=== PATIENT | female | born 1995 | race Caucasian/White ===

== ENCOUNTER → 2016-09-15 | Outpatient (CLI) | payer OTHER ==
--- NOTE | 2016-09-15 09:28 | US ---
EXAMINATION TYPE: US abdomen complete DATE OF EXAM: 09/15/2016 COMPARISON: US 2012 CLINICAL HISTORY: R10.11 RUQ PAIN for approximately 3 weeks. Pain is noted after food and ingestion o f medication; taking medication for Anxiety, ADHD, Tourette's Syndrome, and ACNE EXAM MEASUREMENTS: Liver Length: 14.5 cm Gallbladder Wall: 0.2 cm CBD: 0.1 cm Spleen: 10.1 cm Right Kidney: 11.1 x 3.7 x 2.9 cm Left Kidney: 10.6 x 4.9 x 4.0 cm Pancreas: wnl Liver: wnl Gallbladder: wnl Evidence for sonographic Maya's sign: Yes, per patient CBD: wnl Spleen: wnl Right Kidney: wnl Left Kidney: wnl Upper IVC: wnl Abd Aorta: wnl The liver is homogenous. The intrahepatic portion of the IVC and proximal abdominal aorta are within normal limits. There is no evidence of cholelithiasis. Common bile duct is unremarkable. The visu alized portions of the pancreas are homogenous. The spleen is unremarkable. Kidneys are symmetric a nd free of hydronephrosis. No renal lesions are seen. IMPRESSION: No significant abnormality appreciated.
== END | disposition home or self-care (01) ==
LOC: RADUSWWP 07:42
PROVIDERS: ATTEND Internal Medicine
DX: R10.11 Right upper quadrant pain (principal)
CPT/HCPCS: 76700

== ENCOUNTER → 2016-10-06 | Outpatient (CLI) | payer OTHER ==
--- NOTE | 2016-10-06 15:39 | NM ---
Nuclear medicine hepatobiliary scan. HISTORY: Pain. DOSAGE: The patient received 8 ounces of ensure plus and 5.1 mCi of Technetium 99m Choletec. FINDINGS: There is normal hepatic extraction. The gallbladder is seen by 40 minutes. There is bilia ry to bowel clearance by 30 minutes. Ejection fraction is 78%. IMPRESSION: 1. Normal hepatobiliary exam
== END | disposition home or self-care (01) ==
LOC: RADNMMAIN 12:58
PROVIDERS: ATTEND Surgery
DX: R10.84 Generalized abdominal pain (principal)
CPT/HCPCS: 78226; A9537

== ENCOUNTER → 2017-05-12 | Outpatient (CLI) | payer BC ==
[2017-05-12 11:48] LABS: T4, Free (Free Thyroxine) 1.01 ng/dL (0.78-2.19)
== END | disposition home or self-care (01) ==
LOC: LABWHC1 10:33
PROVIDERS: ATTEND Otolaryngology
DX: E03.9 Hypothyroidism, unspecified (principal); F45.8 Other somatoform disorders
CPT/HCPCS: 36415; 84439; 84443; 86376

== ENCOUNTER → 2017-05-28 | Outpatient (CLI) | payer BC ==
--- NOTE | 2017-05-28 08:37 | FL ---
ESOPHOGRAM. HISTORY: Dysphagia Esophagram was performed per the air contrast technique. The patient swallowed barium and effervesce nt crystals without difficulty or delay. Esophageal peristalsis and motility appear to be within normal limits. There is no evidence for filling defect, mass or diverticulum. No hiatal hernia seen. Subsequently single contrast cervical esophagram was performed which fails demonstrate evidence for a spiration penetration or mass. IMPRESSION: Unremarkable study.
== END | disposition home or self-care (01) ==
LOC: RADFLMAIN 07:40
PROVIDERS: ATTEND Otolaryngology
DX: R13.10 Dysphagia, unspecified (principal)
CPT/HCPCS: 74220

== ENCOUNTER 2017-08-14 23:44 | Emergency (ER) | payer BC ==
[2017-08-14] MEDS ORDERED: ONDANSETRON ODT 4 MG TAB PO STA (23:59)
--- NOTE | 2017-08-15 00:01 | ED ---
Head Injury HPI - General Stated complaint: Head Injury Time Seen by Provider: 08/14/17 23:52 Source: patient, RN notes reviewed Mode of arrival: ambulatory Limitations: no limitations - History of Present Illness Initial comments: This is a 21-year-old female presents emergency from chief complaint of head injury. Patient states that she went to shut her window but slipped on her bed fell into the windowsill striking her face. She states that she felt dazed initially and is had a severe headache that the day. Patient also complains of pain on her left thigh. Denies any blurred vision, double vision. Patient states that she's felt nauseated but no vomiting. Patient states she did try taking some ibuprofen today though she is not having relief of her symptoms. She denies any extremity injuries. She denies any focal weakness or confusion. - Related Data Allergies/Adverse reactions: Allergies Allergy/AdvReac Type Severity Reaction Status Date / Time No Known Allergies Allergy Verified 08/15/17 00:03 Review of Systems ROS Statement: Those systems with pertinent positive or pertinent negative responses have been documented in the HPI. ROS Other: All systems not noted in ROS Statement are negative. General Exam General appearance: alert, in no apparent distress Head exam: Present: atraumatic, normocephalic, normal inspection Eye exam: Present: normal appearance, PERRL, EOMI, periorbital swelling (Mild left), periorbital tenderness (Gece-pj-kgnbbgii left superior to lateral aspect) . Absent: scleral icterus, conjunctival injection ENT exam: Present: normal exam, normal oropharynx, mucous membranes moist, TM's normal bilaterally Neck exam: Present: normal inspection, full ROM. Absent: tenderness, meningismus, lymphadenopathy Respiratory exam: Present: normal lung sounds bilaterally. Absent: respiratory distress, wheezes, rales, rhonchi, stridor Cardiovascular Exam: Present: regular rate, normal rhythm, normal heart sounds. Absent: systolic murmur, diastolic murmur, rubs, gallop, clicks Extremities exam: Present: normal inspection, full ROM, normal capillary refill. Absent: tenderness, pedal edema, joint swelling, calf tenderness Back exam: Absent: tenderness Neurological exam: Present: alert, oriented X3, CN II-XII intact, reflexes normal, other (Finger to nose intact bilaterally). Absent: motor sensory deficit Skin exam: Present: warm, dry, intact, normal color. Absent: rash Course Vital Signs 08/14/17 23:59 Temperature 98.1 F Pulse Rate 68 Respiratory 18 Rate Blood Pressure 120/86 O2 Sat by Pulse 99 Oximetry Medical Decision Making - Medical Decision Making 21-year-old female presented for facial head injury. Patient had CT which was unremarkable. Patient is contusion over left periorbital region, patient does have a headache after head injury consistent with concussion. Patient will be discharged at this time advised to apply ice to her face, take Motrin as directed and return for any worsening symptoms. She is advised to partake in any physical activity until cleared by PCP. Disposition Clinical Impression: Concussion with loss of consciousness, Facial contusion Disposition: HOME SELF-CARE Condition: Stable Instructions: Concussion (ED) Additional Instructions: Please return to the Emergency Department if symptoms worsen or any other concerns. Is patient prescribed a controlled substance at d/c from ED?: No Referrals: Cadence Hong MD [Primary Care Provider] - 1-2 days Time of Disposition: 00:44
[2017-08-15 00:04] VITALS: BP 120/86; PULSE 68; RESP 18; TEMP 98.1
[2017-08-15] MEDS ORDERED: ACETAMINOPHEN TAB 325 MG TAB PO STA (00:31)
--- NOTE | 2017-08-15 00:37 | CT ---
EXAMINATION TYPE: CT brain wo con DATE OF EXAM: 08/15/2017 COMPARISON: NONE HISTORY: fall CT DLP: 1022.80 mGycm. Automated Exposure Control for Dose Reduction was Utilized. TECHNIQUE: CT scan of the head is performed without contrast. FINDINGS: Ventricles and sulci appear normal. There is no mass effect nor midline shift. There is no sign of intracranial hemorrhage. The calvarium is intact. There is small mucus retention cyst in the right maxillary sinus. IMPRESSION: Negative CT scan of the brain.
== END 2017-08-15 00:45 | disposition home or self-care (01) ==
LOC: EC 23:44
DX: S06.0X9A Concussion with loss of consciousness of unspecified duration, initial encounter (principal); S00.83XA Contusion of other part of head, initial encounter; W17.89XA Other fall from one level to another, initial encounter
CPT/HCPCS: 70450; 99283

== ENCOUNTER 2017-08-28 22:02 | Emergency (ER) | payer BC ==
[2017-08-28 22:43] VITALS: RESP 16
[2017-08-28] MEDS ORDERED: KETOROLAC 30 MG/ML 1 ML VIAL IM STA (23:45)
[2017-08-28] MEDS ORDERED: ORPHENADRINE 30 MG/ML 2 ML VIAL IM STA (23:45)
[2017-08-28] MEDS ORDERED: CYCLOBENZAPRINE 10MG STARTER 3 TAB BTL PO STA (23:46)
--- NOTE | 2017-08-28 23:47 | ED ---
Neck Injury/Pain HPI - General Chief Complaint: Neck Pain/Injury Stated Complaint: Neck pain Time Seen by Provider: 08/28/17 22:58 Mode of arrival: ambulatory Limitations: no limitations - History of Present Illness Initial Comments: 21-year-old female patient presents to the emergency department today for evaluation of right-sided neck pain. Patient states that she has been having spasms all day since she woke from sleep. Patient states she feels like she slept wrong on the neck. She denies any history of similar symptoms or neck injury. She denies any fevers or chills. Denies any upper respiratory symptoms. States that she did take Motrin has been applying heat has helped somewhat but not completely resolved her problem. Patient denies any pain radiation down her arms. She denies any numbness or tingling to the upper extremities. Patient denies any recent rash, shortness breath, chest pain, abdominal pain, nausea, vomiting, diarrhea, constipation, back pain, dizziness, weakness, hematuria, dysuria, urinary urgency, urinary frequency, headache, visual changes, or any other complaints. - Related Data Home Medications Medication Instructions Recorded Confirmed Escitalopram [Lexapro] 20 mg PO DAILY 08/28/17 08/28/17 Methylphenidate HCl [Concerta] 36 mg PO DAILY 08/28/17 08/28/17 Minocycline HCl [Minocin] 100 mg PO DAILY 08/28/17 08/28/17 Norgestimate-Ethinyl Estradiol 1 tab PO DAILY 08/28/17 08/28/17 [Sprintec 28 Day Tablet] guanFACINE HCL [Intuniv] 1 mg PO DAILY 08/28/17 08/28/17 Previous Rx's Medication Instructions Recorded Cyclobenzaprine [Flexeril] 10 mg PO TID #9 tab 08/28/17 Ibuprofen [Motrin] 600 mg PO Q8HR PRN #30 tab 08/28/17 Allergies Allergy/AdvReac Type Severity Reaction Status Date / Time No Known Allergies Allergy Verified 08/28/17 22:43 Review of Systems ROS Statement: Those systems with pertinent positive or pertinent negative responses have been documented in the HPI. ROS Other: All systems not noted in ROS Statement are negative. Past Medical History Additional Past Medical History / Comment(s): broken arm, broken nose, learning disability, teurets History of Any Multi-Drug Resistant Organisms: None Reported Additional Past Surgical History / Comment(s): cleft palate surgery Past Psychological History: Anxiety Smoking Status: Former smoker Past Alcohol Use History: None Reported Past Drug Use History: None Reported General Exam Limitations: no limitations General appearance: alert, in no apparent distress, other (Physical well- developed, well-nourished adult female patient in no acute distress. Vital signs upon presentation are temperature 98.4F, pulse 65, respirations 16, blood pressure 134/92, pulse ox 100% on room air.) Eye exam: Present: normal appearance, PERRL, EOMI. Absent: scleral icterus, conjunctival injection, periorbital swelling ENT exam: Present: normal exam, normal oropharynx, mucous membranes moist Neck exam: Present: normal inspection, full ROM (Increased pain with rotation to the left and the right.), other (Muscle spasm to the right side of the neck) . Absent: tenderness, meningismus, lymphadenopathy Respiratory exam: Present: normal lung sounds bilaterally. Absent: respiratory distress, wheezes, rales, rhonchi, stridor Cardiovascular Exam: Present: regular rate, normal rhythm, normal heart sounds. Absent: systolic murmur, diastolic murmur, rubs, gallop, clicks Neurological exam: Present: alert, oriented X3, CN II-XII intact Psychiatric exam: Present: normal affect, normal mood Skin exam: Present: warm, dry, intact, normal color. Absent: rash Course Vital Signs 08/28/17 08/29/17 22:39 00:12 Temperature 98.4 F 98 F Pulse Rate 65 70 Respiratory 16 16 Rate Blood Pressure 134/92 116/75 O2 Sat by Pulse 100 98 Oximetry Medical Decision Making - Medical Decision Making 21-year-old female patient presented to the emergency department today for evaluation of spasm to her right side of her neck that started when she woke this morning. Physical examination is unremarkable. Strength in the upper extremities are 5/5. Patient was negative hCG. We will give her prescription for muscle relaxer and she is instructed to continue taking ibuprofen for pain. She is instructed regarding gentle range of motion and he application. She is instructed to follow-up with her primary care physician for recheck in 1-2 days. Return parameters discussed in detail. She verbalizes understanding and agrees this plan. - Lab Data Lab Results 08/28/17 Range/Units 23:20 Urine HCG, Qual Not Detected (Not Detectd) Disposition Clinical Impression: Spasmodic torticollis Disposition: HOME SELF-CARE Condition: Good Instructions: Spasmodic Torticollis (ED) Additional Instructions: Continue to apply warm moist heat to the neck. Continue taking Motrin and muscle relaxer as directed. Follow-up with your primary care physician for recheck in 1-2 days. Return here immediately for any new, worsening, or concerning symptoms. Prescriptions: Cyclobenzaprine [Flexeril] 10 mg PO TID #9 tab Ibuprofen [Motrin] 600 mg PO Q8HR PRN #30 tab PRN Reason: Pain Is patient prescribed a controlled substance at d/c from ED?: No Referrals: Cadence Hong MD [Primary Care Provider] - 1-2 days Time of Disposition: 23:47
[2017-08-29 00:13] VITALS: BP 116/75; PULSE 70; TEMP 98
== END 2017-08-29 00:12 | disposition home or self-care (01) ==
LOC: EC 22:02
DX: G24.3 Spasmodic torticollis (principal); F41.9 Anxiety disorder, unspecified; F81.9 Developmental disorder of scholastic skills, unspecified; Z87.891 Personal history of nicotine dependence; Z98.890 Other specified postprocedural states; Z79.3 Long term (current) use of hormonal contraceptives; Z79.899 Other long term (current) drug therapy
CPT/HCPCS: 81025; 99283; 96372 ×2; J2360; J1885

== ENCOUNTER 2017-09-13 01:00 | Emergency (ER) | payer BC ==
[2017-09-13 01:26] VITALS: RESP 18
[2017-09-13 03:37] LABS: Basophils % (A) 0 %; Eosinophils # (A) 0.3 k/uL (0-0.7); Eosinophils % (A) 4 %; HCT 41.3 % (34.0-46.0); HGB 14.1 gm/dL (11.4-16.0); Lymphocytes # (A) 1.6 k/uL (1.0-4.8); Lymphocytes % (A) 22 %; MCH 29.6 pg (25.0-35.0); MCHC 34.3 g/dL (31.0-37.0); MCV 86.4 fL (80.0-100.0); Mean Platelet Volume 7.3; Monocytes # (A) 0.4 k/uL (0-1.0); Monocytes % (A) 5 %; Neutrophils # (A) 4.9 k/uL (1.3-7.7); Neutrophils % (A) 68 %; Platelet Count 234 k/uL (150-450); RBC 4.78 m/uL (3.80-5.40); RDW 13.2 % (11.5-15.5); WBC 7.3 k/uL (4.0-11.0)
[2017-09-13 03:47] LABS: ALT 26 U/L (9-52); AST 20 U/L (14-36); Alkaline Phosphatase 64 U/L (38-126); Anion Gap 5 mmol/L; Blood Urea Nitrogen 10 mg/dL (7-17); Calcium 9.9 mg/dL (8.4-10.2); Carbon Dioxide 26 mmol/L (22-30); Chloride 107 mmol/L (98-107); Glucose 115 mg/dL (74-99); Magnesium 1.9 mg/dL (1.6-2.3); Sodium 138 mmol/L (137-145); Total Bilirubin 0.2 mg/dL (0.2-1.3); Total Protein 6.6 g/dL (6.3-8.2)
[2017-09-13 03:49] LABS: Partial Thromboplastin Time 25.3 sec (22.0-30.0); Prothrombin Time 9.7 sec (9.0-12.0)
[2017-09-13] MEDS ORDERED: KETOROLAC 30 MG/ML 1 ML VIAL IVP STA (03:51)
--- NOTE | 2017-09-13 04:05 | XR ---
EXAMINATION TYPE: XR chest 2V DATE OF EXAM: 09/13/2017 COMPARISON: NONE HISTORY: Chest pain TECHNIQUE: Frontal and lateral views of the chest are obtained. FINDINGS: Heart and mediastinum are normal. Lungs are clear. Diaphragm is normal. Bony thorax appear s normal. IMPRESSION: Normal chest
[2017-09-13 04:09] LABS: Creatine Kinase 62 U/L (30-135)
[2017-09-13 04:23] LABS: Creatine Kinase MB 0.7 ng/mL (0.0-2.4); Troponin I <0.012 ng/mL (0.000-0.034)
--- NOTE | 2017-09-13 04:26 | ED ---
Chest Pain HPI - General Chief Complaint: Chest Pain Stated Complaint: Chest and back pain Time Seen by Provider: 09/13/17 02:56 Source: patient, RN notes reviewed, old records reviewed Mode of arrival: ambulatory Limitations: no limitations - History of Present Illness Initial Comments: Patient's 21-year-old female presents return with a chief complaint of chest pain that 3 days. It radiates on around her ribs and her back. Worse taking a deep breath. Patient states that she has had no leg swelling. Denies any cough. She denies a specific shortness of breath. No nausea or vomiting. Patient states that she has had no strenuous activity. No falls or trauma. - Related Data Home Medications Medication Instructions Recorded Confirmed Escitalopram [Lexapro] 20 mg PO DAILY 08/28/17 09/13/17 Methylphenidate HCl [Concerta] 36 mg PO DAILY 08/28/17 09/13/17 Minocycline HCl [Minocin] 100 mg PO DAILY 08/28/17 09/13/17 Norgestimate-Ethinyl Estradiol 1 tab PO DAILY 08/28/17 09/13/17 [Sprintec 28 Day Tablet] guanFACINE HCL [Intuniv] 1 mg PO DAILY 08/28/17 09/13/17 Previous Rx's Medication Instructions Recorded Ibuprofen 800 mg PO DAILY #20 tablet 09/13/17 methylPREDNISolone Dose Pack 4 mg PO DIRECTED #21 package 09/13/17 [Medrol Dose Pack] Allergies Allergy/AdvReac Type Severity Reaction Status Date / Time No Known Allergies Allergy Verified 09/13/17 01:25 Review of Systems ROS Statement: Those systems with pertinent positive or pertinent negative responses have been documented in the HPI. ROS Other: All systems not noted in ROS Statement are negative. EKG Findings - EKG Comments: EKG Findings:: EKG performed at 131 shows sinus bradycardia otherwise normal EKG. Ventricular rate 52 beats per minute. Intervals 134 ms. QRS duration 82 ms. QT QTc is 434/399 ms. Past Medical History Additional Past Medical History / Comment(s): broken arm, broken nose, learning disability, teurets History of Any Multi-Drug Resistant Organisms: None Reported Past Surgical History: Ear Surgery Additional Past Surgical History / Comment(s): cleft palate surgery Past Psychological History: Anxiety Smoking Status: Former smoker Past Alcohol Use History: None Reported Past Drug Use History: None Reported General Exam - General Exam Comments Initial Comments: 21-year-old female. Alert and oriented. No significant distress. General: Well appearing, well nourished, in no distress. Oriented x 3, normal mood and affect . Ambulating without difficulty. Skin: Good turgor, no rash, unusual bruising or prominent lesions Hair: Normal texture and distribution. HEENT: Head: Normocephalic, atraumatic, no visible or palpable masses, depressions, or scaring. Eyes: Visual acuity intact, conjunctiva clear, sclera non-icteric, EOM intact, PERRL. Ears: EACs clear, TMs translucent & cone of light visualized. hearing intact. Nose: No external lesions, mucosa non-inflamed, septum and turbinates normal Mouth: Mucous membranes moist, no mucosal lesions. Teeth/Gums: No obvious caries or periodontal disease. No gingival inflammation or significant resorption. Pharynx: Mucosa non-inflamed, no tonsillar hypertrophy or exudate Neck: Supple, without lesions, bruits, or adenopathy, thyroid non-enlarged and non-tender Heart: No cardiomegaly or thrills; regular rate and rhythm, no murmur or gallop Lungs: Clear to auscultation and percussion. Patient has tenderness to palpation over sternum and bilateral lower ribs. Abdomen: Bowel sounds normal, no tenderness, organomegaly, masses, or hernia Extremities: No amputations or deformities, cyanosis, edema or varicosities, peripheral pulses intact Musculoskeletal: Normal gait and station. No misalignment, asymmetry, crepitation, defects, tenderness, masses, effusions, decreased range of motion, instability, atrophy or abnormal strength or tone in the head, neck, spine, ribs , pelvis or extremities. Neurologic: CN 2-12 normal. Sensation to pain, touch, and proprioception normal. DTRs normal in upper and lower extremities. No pathologic reflexes. Psychiatric: Oriented X3, intact recent and remote memory, judgment and insight , normal mood and affect. Limitations: no limitations Course Vital Signs 09/13/17 01:22 Temperature 98.2 F Pulse Rate 56 L Respiratory 18 Rate Blood Pressure 126/73 O2 Sat by Pulse 99 Oximetry Chest Pain MDM - MDM 21-year-old female presents with a history of Ramona past 3 days. Vital signs are stable. Heart rate is within normal limits. Oxygen saturation 99% on room air. Patient EKG was performed shows no significant rales. Lab work shows no abnormalities as well. Legs show no swelling. Neck concern for DVT. Patient does have reproducible pain to palpation over ribs. Likely costochondritis. At this time we'll discharge her with close follow-up with primary care physician. Antiplatelet her medicine and steroids. Discussed return parameters. All questions answered return parameters were discussed. Disposition Clinical Impression: Costochondritis Disposition: HOME SELF-CARE Condition: Good Instructions: Costochondritis (ED) Additional Instructions: Patient has follow-up with primary care physician. Take the anti-inflammatory medicine as prescribed. Return to emergency department if any alarming signs or symptoms occur. Prescriptions: Ibuprofen 800 mg PO DAILY #20 tablet methylPREDNISolone Dose Pack [Medrol Dose Pack] 4 mg PO DIRECTED #21 package Is patient prescribed a controlled substance at d/c from ED?: No When asked, does pt state using other controlled substances?: No If prescribed controlled substance>3 days was MAPS reviewed?: No If opioid is for acute pain is fill amount 7 days or less?: No If Rx opioid, was Start Talking consent form obtained?: No Referrals: Cadence Hong MD [Primary Care Provider] - 1-2 days Time of Disposition: 05:05
[2017-09-13 06:25] VITALS: BP 92/51; PULSE 69; TEMP 98.1
== END 2017-09-13 05:24 | disposition home or self-care (01) ==
LOC: EC 01:00
DX: M94.0 Chondrocostal junction syndrome [Tietze] (principal); M54.9 Dorsalgia, unspecified; F41.9 Anxiety disorder, unspecified; F81.9 Developmental disorder of scholastic skills, unspecified; Z87.891 Personal history of nicotine dependence; Z79.3 Long term (current) use of hormonal contraceptives; Z79.899 Other long term (current) drug therapy
CPT/HCPCS: 36415; 93005; 80053; 82550; 82553; 83735; 84484; 85025; 85610; 85730; 71046; 99285; 96374; J1885

== ENCOUNTER 2018-09-19 13:07 | Emergency (ER) | payer BC, OTHER ==
[2018-09-19 14:20] LABS: ALT 17 U/L (9-52); AST 15 U/L (14-36); African American GFR (CKD) >90 (>60 ml/min/1.73 sqM); Albumin 3.8 g/dL (3.5-5.0); Alkaline Phosphatase 66 U/L (38-126); Amylase 53 U/L (30-110); Anion Gap 9 mmol/L; Blood Urea Nitrogen 6 mg/dL (7-17); Calcium 9.4 mg/dL (8.4-10.2); Carbon Dioxide 24 mmol/L (22-30); Chloride 107 mmol/L (98-107); Glucose 84 mg/dL (74-99); Lipase 48 U/L (23-300); Potassium 4.5 mmol/L (3.5-5.1); Sodium 140 mmol/L (137-145); Total Bilirubin 0.3 mg/dL (0.2-1.3); Total Protein 6.5 g/dL (6.3-8.2)
[2018-09-19 14:25] LABS: Basophils % (A) 1 %; Eosinophils # (A) 0.3 k/uL (0-0.7); Eosinophils % (A) 4 %; HCT 39.8 % (34.0-46.0); HGB 13.4 gm/dL (11.4-16.0); Lymphocytes # (A) 2.1 k/uL (1.0-4.8); Lymphocytes % (A) 25 %; MCHC 33.8 g/dL (31.0-37.0); MCV 85.9 fL (80.0-100.0); Mean Platelet Volume 6.9; Monocytes # (A) 0.4 k/uL (0-1.0); Monocytes % (A) 5 %; Neutrophils # (A) 5.1 k/uL (1.3-7.7); Neutrophils % (A) 62 %; Platelet Count 315 k/uL (150-450); RBC 4.63 m/uL (3.80-5.40); RDW 13.1 % (11.5-15.5); WBC 8.2 k/uL (3.8-10.6)
[2018-09-19 14:27] LABS: Appearance,Urine Clear (Clear); Bacteria,Urine Occasional /hpf; Bilirubin,Urine Negative (Negative); Blood,Urine Negative (Negative); Color,Urine Yellow; Glucose,Urine (UA) Negative (Negative); Ketones,Urine Negative (Negative); Leukocyte Esterase,Urine Small (Negative); Mucus,Urine Occasional /hpf; Nitrite,Urine Negative (Negative); PH, Urine 5.5 (5.0-8.0); Protein,Urine Negative (Negative); RBC,Urine 1 /hpf (0-5); Specific Gravity,Urine 1.016 (1.001-1.035); Squamous Epithelial Cell,Urine 3 /hpf (0-4); Urobilinogen,Urine <2.0 mg/dL (<2.0); WBC,Urine 6 /hpf (0-5)
--- NOTE | 2018-09-19 17:02 | CT ---
EXAMINATION TYPE: CT abdomen pelvis w con DATE OF EXAM: 09/19/2018 HISTORY: Abdominal pain and diarrhea x5 days CT DLP: 591.1mGycm Automated Exposure Control for Dose Reduction was Utilized. CONTRAST: CT scan of the abdomen and pelvis is performed with IV Contrast, patient injected with 100 mL of Isov ue 300. COMPARISON: US abdomen complete September 15, 2016 FINDINGS: LUNG BASES: No significant abnormality is appreciated. LIVER/GB: Somewhat contracted gallbladder. PANCREAS: No significant abnormality is seen. SPLEEN: No significant abnormality is seen. ADRENALS: No significant abnormality is seen. KIDNEYS: No significant abnormality is seen. BOWEL: Evaluation of bowel is suboptimal secondary to lack of enteric contrast. Stomach is felt withi n normal limits. There is no suspicious small or large bowel dilatation. There is mild to moderate wa ll thickening beginning mid transverse colon extending to the rectum. No pneumoperitoneum. No well-fo rmed fluid collection. UTERUS/ADNEXA: Heterogeneous anteverted uterus. LYMPH NODES: No greater than 1cm abdominal or pelvic lymph nodes are appreciated. OSSEOUS STRUCTURES: No significant abnormality is seen. OTHER: No significant additional abnormality is seen. IMPRESSION: Suspicion for a contiguous [id number]-hu-ssceefhp distal acute colitis differential includes in fectious and inflammatory etiologies, ulcerative colitis needs to be strongly considered in patient o f this age.
--- NOTE | 2018-09-19 17:38 | ED ---
Abdominal Pain HPI - General Chief Complaint: Abdominal Pain Stated Complaint: abdominal pain-sent by [email or web address] Time Seen by Provider: 09/19/18 15:10 Source: patient Mode of arrival: ambulatory Limitations: no limitations - History of Present Illness Initial Comments: 22yo female presenting today for cc of abdominal pain, diarrhea x 5 days. Patient states that she has has diffuse abdominal pain, diarrhea for 5 days she denies any dark stools or hematochezia. Patient denies vomiting hematemesis but states she does feel sick at times when she eats. Patient states she has been eating and drinking she states she has urinated. Denies pelvic pain or vaginal bleeding. Denies dysuria, urgency, frequency, hematuria. Pateint denies . Patient denies fevers, recent travel or sick contacts. Remaining ROS (-). UPon arrival patient appears well, there are no signs of acute distress. - Related Data Home Medications Medication Instructions Recorded Confirmed Escitalopram [Lexapro] 20 mg PO DAILY 08/28/17 09/19/18 Methylphenidate HCl [Concerta] 36 mg PO DAILY 08/28/17 09/19/18 Minocycline HCl [Minocin] 100 mg PO DAILY 08/28/17 09/19/18 guanFACINE HCL [Intuniv] 1 mg PO DAILY 08/28/17 09/19/18 Apri 1 tab PO DAILY 09/19/18 09/19/18 Allergies Allergy/AdvReac Type Severity Reaction Status Date / Time No Known Allergies Allergy Verified 09/19/18 16:07 Review of Systems ROS Statement: Those systems with pertinent positive or pertinent negative responses have been documented in the HPI. ROS Other: All systems not noted in ROS Statement are negative. Past Medical History Additional Past Medical History / Comment(s): broken arm, broken nose, learning disability, teurets History of Any Multi-Drug Resistant Organisms: None Reported Past Surgical History: Ear Surgery Additional Past Surgical History / Comment(s): cleft palate surgery Past Psychological History: Anxiety Smoking Status: Former smoker Past Alcohol Use History: None Reported Past Drug Use History: None Reported General Exam - General Exam Comments Initial Comments: General: The patient is awake and alert, in no distress, and does not appear acutely ill. Eye: +3 mm pupils are equal, round and reactive to light, extra-ocular movements are intact. No nystagmus. There is normal conjunctiva bilaterally. No signs of icterus. Ears, nose, mouth and throat: There are moist mucous membranes and no oral lesions. Neck: The neck is supple, there is no tenderness or JVD. Cardiovascular: There is a regular rate and rhythm. No murmur, rub or gallop is appreciated. Respiratory: Lungs are clear to auscultation, respirations are non-labored, breath sounds are equal. No wheezes, stridor, rales, or rhonchi. Gastrointestinal: Soft, non-distended, mild tenderness to palpation of the lo wer abdomen without masses or organomegaly noted. No RUQ tenderness. There is no rebound or guarding present. No CVA tenderness. Bowel sounds are unremarkable. Musculoskeletal: Normal ROM, no tenderness. Strength 5/5. Sensation intact. Radial pulses equal bilaterally 2+. Neurological: A&O x 3. CN II-XII intact, There are no obvious motor or sensory deficits. Coordination appears grossly intact. Speech is normal. Skin: Skin is warm and dry and no rashes or lesions are noted. Psychiatric: Cooperative, appropriate mood & affect, normal judgment. Limitations: no limitations Course Vital Signs 09/19/18 09/19/18 13:37 17:54 Temperature 98.0 F 97.8 F Pulse Rate 69 58 L Respiratory 18 16 Rate Blood Pressure 103/65 97/58 O2 Sat by Pulse 100 100 Oximetry Medical Decision Making - Medical Decision Making 22yo male presenting today for cc of abdominal pain, diarrhea. All tenderness on examination no rebound or guarding. No signs of peritoneal irritation. No active diarrhea or vomiting in the emergency department. CT was obtained as tad oliva was sent him out patient facility for rule out appendicitis given the right lower quadrant tenderness at patient on examination. I appreciated diffuse lower abdominal tenderness which did include the right lower quadrant. There is no pelvic tenderness. Patient has a vaginal discharge dysuria or urgency frequency or hematuria. CT revealed findings consistent with acute distal colitis. Differential diagnosis includes ulcerative colitis. Patient denies any bloody stools. Patient denies any pain or similar symptoms prior to onset 5 days prior. At this time given patient's vital to studies are stable, vital signs within acceptable limits the patient appears well clinically that she is stable for outpatient gastroenterology follow-up for direct visualization felt a diagnosis of etiology of colitis. Return parameters as well as consultations were discussed at length the patient verbalized understanding. Patient was discharged appearing well agreeable to discharge of her plan. I discussed the case with Dr. Clayton prior to discharge. - Lab Data Result diagrams: 09/19/18 13:52 09/19/18 13:52 Lab Results 09/19/18 09/19/18 09/19/18 Range/Units 13:52 13:52 13:52 WBC 8.2 (3.8-10.6) k/uL RBC 4.63 (3.80-5.40) m/uL Hgb 13.4 (11.4-16.0) gm/dL Hct 39.8 (34.0-46.0) % MCV 85.9 (80.0-100.0) fL MCH 29.0 (25.0-35.0) pg MCHC 33.8 (31.0-37.0) g/dL RDW 13.1 (11.5-15.5) % Plt Count 315 (150-450) k/uL Neutrophils % 62 % Lymphocytes % 25 % Monocytes % 5 % Eosinophils % 4 % Basophils % 1 % Neutrophils # 5.1 (1.3-7.7) k/uL Lymphocytes # 2.1 (1.0-4.8) k/uL Monocytes # 0.4 (0-1.0) k/uL Eosinophils # 0.3 (0-0.7) k/uL Basophils # 0.0 (0-0.2) k/uL Sodium 140 (137-145) mmol/L Potassium 4.5 (3.5-5.1) mmol/L Chloride 107 (98-107) mmol/L Carbon Dioxide 24 (22-30) mmol/L Anion Gap 9 mmol/L BUN 6 L (7-17) mg/dL Creatinine 0.68 (0.52-1.04) mg/dL Est GFR (CKD-EPI)AfAm >90 (>60 ml/min/1.73 sqM) Est GFR (CKD-EPI)NonAf >90 (>60 ml/min/1.73 sqM) Glucose 84 (74-99) mg/dL Calcium 9.4 (8.4-10.2) mg/dL Total Bilirubin 0.3 (0.2-1.3) mg/dL AST 15 (14-36) U/L ALT 17 (9-52) U/L Alkaline Phosphatase 66 (38-126) U/L Total Protein 6.5 (6.3-8.2) g/dL Albumin 3.8 (3.5-5.0) g/dL Amylase 53 (30-110) U/L Lipase 48 (23-300) U/L Urine Color Urine Appearance (Clear) Urine pH (5.0-8.0) Ur Specific [place] (1.001-1.035) Urine Protein (Negative) Urine Glucose (UA) (Negative) Urine Ketones (Negative) Urine Blood (Negative) Urine Nitrite (Negative) Urine Bilirubin (Negative) Urine Urobilinogen (<2.0) mg/dL Ur Leukocyte Esterase (Negative) Urine RBC (0-5) /hpf Urine WBC (0-5) /hpf Ur Squamous Epith Cells (0-4) /hpf Urine Bacteria (None) /hpf Urine Mucus (None) /hpf Urine HCG, Qual Not Detected (Not Detectd) 09/19/18 Range/Units 13:52 WBC (3.8-10.6) k/uL RBC (3.80-5.40) m/uL Hgb (11.4-16.0) gm/dL Hct (34.0-46.0) % MCV (80.0-100.0) fL MCH (25.0-35.0) pg MCHC (31.0-37.0) g/dL RDW (11.5-15.5) % Plt Count (150-450) k/uL Neutrophils % % Lymphocytes % % Monocytes % % Eosinophils % % Basophils % % Neutrophils # (1.3-7.7) k/uL Lymphocytes # (1.0-4.8) k/uL Monocytes # (0-1.0) k/uL Eosinophils # (0-0.7) k/uL Basophils # (0-0.2) k/uL Sodium (137-145) mmol/L Potassium (3.5-5.1) mmol/L Chloride (98-107) mmol/L Carbon Dioxide (22-30) mmol/L Anion Gap mmol/L BUN (7-17) mg/dL Creatinine (0.52-1.04) mg/dL Est GFR (CKD-EPI)AfAm (>60 ml/min/1.73 sqM) Est GFR (CKD-EPI)NonAf (>60 ml/min/1.73 sqM) Glucose (74-99) mg/dL Calcium (8.4-10.2) mg/dL Total Bilirubin (0.2-1.3) mg/dL AST (14-36) U/L ALT (9-52) U/L Alkaline Phosphatase (38-126) U/L Total Protein (6.3-8.2) g/dL Albumin (3.5-5.0) g/dL Amylase (30-110) U/L Lipase (23-300) U/L Urine Color Yellow Urine Appearance Clear (Clear) Urine pH 5.5 (5.0-8.0) Ur Specific [place] 1.016 (1.001-1.035) Urine Protein Negative (Negative) Urine Glucose (UA) Negative (Negative) Urine Ketones Negative (Negative) Urine Blood Negative (Negative) Urine Nitrite Negative (Negative) Urine Bilirubin Negative (Negative) Urine Urobilinogen <2.0 (<2.0) mg/dL Ur Leukocyte Esterase Small H (Negative) Urine RBC 1 (0-5) /hpf Urine WBC 6 H (0-5) /hpf Ur Squamous Epith Cells 3 (0-4) /hpf Urine Bacteria Occasional H (None) /hpf Urine Mucus Occasional H (None) /hpf Urine HCG, Qual (Not Detectd) Disposition Clinical Impression: Colitis Disposition: HOME SELF-CARE Condition: Good Instructions (If sedation given, give patient instructions): Colitis (ED) Additional Instructions: Please use medication as discussed. Please follow-up with family doctor in the next 2 days, and GI as discussed I recommend colonoscopy. Please return to emergency room if the symptoms increase or worsen or for any other concerns. Is patient prescribed a controlled substance at d/c from ED?: No Referrals: Cadence Hong MD [Primary Care Provider] - 1-2 days Moiz Casas MD [STAFF PHYSICIAN] - 1-2 days Time of Disposition: 17:35
[2018-09-19 17:55] VITALS: BP 97/58; PULSE 58; RESP 16; TEMP 97.8
== END 2018-09-19 18:10 | disposition home or self-care (01) ==
LOC: EC 13:07
DX: K52.9 Noninfective gastroenteritis and colitis, unspecified (principal); F41.9 Anxiety disorder, unspecified; Z79.899 Other long term (current) drug therapy; Z87.891 Personal history of nicotine dependence
CPT/HCPCS: 36415; 80053; 82150; 83690; 85025; 81001; 81025; 74177; 99284; Q9967

== ENCOUNTER → 2018-11-18 | Outpatient (CLI) | payer OTHER ==
[2018-11-18 11:37] LABS: HCT 41.3 % (34.0-46.0); HGB 14.5 gm/dL (11.4-16.0); MCH 30.5 pg (25.0-35.0); MCHC 35.1 g/dL (31.0-37.0); MCV 86.9 fL (80.0-100.0); Mean Platelet Volume 6.7; Platelet Count 336 k/uL (150-450); RBC 4.75 m/uL (3.80-5.40); RDW 13.5 % (11.5-15.5); WBC 7.5 k/uL (3.8-10.6)
[2018-11-18 15:20] LABS: Erythrocyte Sedimentation Rate 12 mm/hr (0-20)
[2018-11-18 18:42] LABS: African American GFR (CKD) 121.3 (60.0-200.0); Albumin 4.4 g/dL (3.80-4.90); Albumin/Globulin Ratio 2.2 (1.60-3.17); Anion Gap 8.8 mmol/L (4.00-12.00); BUN/Creat Ratio 13.75 Ratio (12.00-20.00); C Reactive Protein 2.5 mg/dL (0.0-0.8); Calcium 9.9 mg/dL (8.7-10.3); Carbon Dioxide 24.2 mmol/L (21.6-31.8); Potassium 4.6 mmol/L (3.5-5.5); Total Bilirubin 0.4 mg/dL (0.3-1.2); Total Protein 6.4 g/dL (6.2-8.2)
[2018-11-18 19:26] LABS: Gliadin AB IgA, Deaminated NEGATIVE (NEGATIVE); Gliadin AB IgA, Unit 0.4 U/mL; Gliadin AB IgG, Deaminated NEGATIVE (NEGATIVE)
== END | disposition home or self-care (01) ==
LOC: LABWHC1 10:32
PROVIDERS: ATTEND Internal Medicine
DX: R19.4 Change in bowel habit (principal)
CPT/HCPCS: 36415; 80053; 83516; 83993; 84439; 84443; 85027; 85652; 86140

== ENCOUNTER 2018-11-22 09:30 | Day surgery (SDC) | payer OTHER ==
[2018-11-18 13:48] VITALS: BMI 24.7
[~2018-11-22 09:30] MED LIST: LACTATED RINGERS 1,000 ML IV SCH; LIDOCAINE 1% 20 ML VIAL (10MG/ML) FOR IV START INTRADERMA PRN
[2018-11-22 09:52] VITALS: TEMP 98.1
[2018-11-22] MEDS ORDERED: PROPOFOL 10 MG/ML 20 ML VIAL IV ONE (10:03)
[2018-11-22] MEDS ORDERED: LIDOCAINE 1% INJ 10MG/ML (20 ML MDV) ONE (10:03)
--- NOTE | 2018-11-22 10:43 | P.PCN ---
Date of Procedure: 11/22/18 Description of Procedure: BRIEF HISTORY: Patient is a 23-year-old pleasant female scheduled for an elective colonoscopy as a part of colonoscopy for evaluation of altered bowel habits. The patient had been seen in the ER previously after having 5 days of loose stool. She reports since that time having alternating constipation and diarrhea. She denies any sick contacts unusual foods travel or new medications. Patient was adopted so family history cannot be obtained. 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 PROCEDURE PERFORMED: Colonoscopy with biopsy. PREOPERATIVE DIAGNOSIS: Change in bowel habits, abnormal computed tomography scan the abdomen, no prior colonoscopy. ESTIMATED BLOOD LOSS: Minimal. IV sedation per Anesthesia. PROCEDURE: After informed consent was obtained, the patient, was brought into the endoscopy unit. IV sedation was administered by Anesthesia under continuous monitoring. Digital rectal examination was normal. Initially the Olympus CF-190 flexible video colonoscope was then inserted in the rectum, gradually advanced into the cecum without any difficulty. Terminal ileum was intubated and appeared normal, with biopsies taken. Careful examination was performed as the scope was gradually being withdrawn. Ileocecal valve and the appendiceal orifice were visualized and appeared normal. Prep was excellent. Mucosa of the cecum, ascending colon, transverse colon, descending colon, sigmoid colon, and rectum appeared normal, with random biopsies of the right colon, left colon and rectum taken. Retroflexion was performed in the rectum and no lesions were seen. The patient tolerated the procedure well. IMPRESSION: Normal-appearing colon from rectum to cecum and normal-appearing terminal ileum with random biopsies taken of the right colon, left colon and terminal ileum. RECOMMENDATIONS: Findings of this examination were discussed with the patient and her mother. Okay to resume diet. Follow up with gastroenterology as previously scheduled. Await pathology from biopsies.
[2018-11-22 10:53] VITALS: BP 133/89; PULSE 67; RESP 18
== END 2018-11-22 11:07 | disposition home or self-care (01) ==
LOC: ORWHC2ENDO 09:30
PROVIDERS: ATTEND Internal Medicine
DX: K62.89 Other specified diseases of anus and rectum (principal); Z87.891 Personal history of nicotine dependence; Z79.899 Other long term (current) drug therapy; Z98.890 Other specified postprocedural states
CPT/HCPCS: 81025; 88305; 45380; J2001; J2704

== ENCOUNTER 2019-04-02 19:18 | Emergency (ER) | payer OTHER ==
[2019-04-02 19:28] VITALS: BP 115/68; PULSE 75; RESP 16; TEMP 98.1
[2019-04-02 20:10] LABS: Basophils # (A) 0.1 k/uL (0-0.2); Basophils % (A) 1 %; Eosinophils # (A) 0.5 k/uL (0-0.7); Eosinophils % (A) 5 %; HCT 42.9 % (34.0-46.0); HGB 14.2 gm/dL (11.4-16.0); Lymphocytes # (A) 3.1 k/uL (1.0-4.8); Lymphocytes % (A) 30 %; MCH 29.4 pg (25.0-35.0); MCHC 33.2 g/dL (31.0-37.0); MCV 88.5 fL (80.0-100.0); Mean Platelet Volume 7.3; Monocytes # (A) 0.4 k/uL (0-1.0); Monocytes % (A) 4 %; Neutrophils # (A) 5.9 k/uL (1.3-7.7); Neutrophils % (A) 58 %; Platelet Count 281 k/uL (150-450); RBC 4.85 m/uL (3.80-5.40); WBC 10.2 k/uL (3.8-10.6)
[2019-04-02 20:20] LABS: INR 0.9 (<1.2); Prothrombin Time 9.7 sec (9.0-12.0)
[2019-04-02 20:21] LABS: ALT 41 U/L (4-34); AST 42 U/L (14-36); African American GFR (CKD) >90 (>60 ml/min/1.73 sqM); Albumin 4.4 g/dL (3.5-5.0); Alkaline Phosphatase 79 U/L (38-126); Anion Gap 9 mmol/L; Blood Urea Nitrogen 14 mg/dL (7-17); Calcium 9.9 mg/dL (8.4-10.2); Carbon Dioxide 25 mmol/L (22-30); Chloride 106 mmol/L (98-107); Glucose 81 mg/dL (74-99); Non-African American GFR(CKD) >90 (>60 ml/min/1.73 sqM); Potassium 3.9 mmol/L (3.5-5.1); Sodium 140 mmol/L (137-145); Total Bilirubin 0.3 mg/dL (0.2-1.3); Total Protein 7.3 g/dL (6.3-8.2)
[2019-04-02 20:37] LABS: Appearance,Urine Clear (Clear); Bacteria,Urine Rare /hpf; Bilirubin,Urine Negative (Negative); Blood,Urine Moderate (Negative); Color,Urine Light Yellow; Glucose,Urine (UA) Negative (Negative); Ketones,Urine Negative (Negative); Leukocyte Esterase,Urine Negative (Negative); Mucus,Urine Rare /hpf; Nitrite,Urine Negative (Negative); Protein,Urine Negative (Negative); RBC,Urine 26 /hpf (0-5); Specific Gravity,Urine 1.009 (1.001-1.035); Squamous Epithelial Cell,Urine 1 /hpf (0-4); Urobilinogen,Urine <2.0 mg/dL (<2.0); WBC,Urine <1 /hpf (0-5)
[2019-04-02 20:38] LABS: HCG,Quantitative Serum 153.7 mIU/mL
--- NOTE | 2019-04-02 20:46 | US ---
EXAMINATION TYPE: Transabdominal DATE OF EXAM: 04/02/2019 8:35 PM COMPARISON: NONE CLINICAL HISTORY: pain. bleeding withpregnancy EXAM PERFORMED: Transvaginal (TV) and Transabdominal (TA) EXAM MEASUREMENTS: GESTATIONAL AGE / DATING Physician Established: Not yet established Dates by LMP: 02/22/2019 (5 weeks/6 days) EDC: 11/29/2019 Dates by First Scan: No previous this is first scan Dates by Current Scan for: No IUP seen at this time MATERNAL ANATOMY Uterus: 8.0 x 3.5 x 4.9 cm Right Ovary: 2.1 x 1.2 x 2.0 cm Left Ovary: 2.3 x 1.8 x 1.8 cm Post CDS / Adnexa: wnl Presence of free fluid: none GESTATION / SURVEY No ultrasound evidence for IUP at this time. Endo is thickened, but decidual reaction not appreciated . No suspicious adnexal mass identified. Ovaries appear normal. Date of LMP: 02/22/2019 Beta HcG (if available): 153 IMPRESSION: No evidence of a . Negative exam. No sign of ectopic .
--- NOTE | 2019-04-02 21:24 | ED ---
General Adult HPI - General Chief complaint: Vaginal Bleeding Stated complaint: and bleeding Time Seen by Provider: 04/02/19 19:25 Source: patient Mode of arrival: ambulatory Limitations: no limitations - History of Present Illness Initial comments: Patient is a 23-year-old female who passed because she presents emergency room with reported vaginal bleeding. She did take a test on Wednesday and was positive. This is her first . Last menstrual cycle was February 22. She did make an appointment to follow up with OB on the of this month. She is going to be going to [facility]. She states that last night she developed brown spotting. Today the bleeding was a little heavier was bright red in color. States that she is not saturating a pad. No lightheadedness or dizziness. Denies any vaginal discharge. No concern for sexually transmitted infections. Denies dysuria, hematuria or difficulty voiding. Denies any issues with her bowel movements. No abdominal trauma. Minimal abdominal cramping. There are no other alleviating, precipitating modifying factors - Related Data Home Medications Medication Instructions Recorded Confirmed Escitalopram [Lexapro] 20 mg PO QAM 08/28/17 11/18/18 Methylphenidate HCl [Concerta] 36 mg PO DAILY 08/28/17 11/18/18 Minocycline HCl [Minocin] 100 mg PO DAILY 08/28/17 11/18/18 Apri 1 tab PO DAILY 09/19/18 11/18/18 guanFACINE HCL [guanFACINE HCL ER] 4 mg PO HS 11/18/18 11/18/18 Allergies Allergy/AdvReac Type Severity Reaction Status Date / Time No Known Allergies Allergy Verified 04/02/19 19:26 Review of Systems ROS Statement: Those systems with pertinent positive or pertinent negative responses have been documented in the HPI. ROS Other: All systems not noted in ROS Statement are negative. Past Medical History Additional Past Medical History / Comment(s): broken arm, broken nose, learning disability, teurets History of Any Multi-Drug Resistant Organisms: None Reported Past Surgical History: Ear Surgery Additional Past Surgical History / Comment(s): cleft palate surgery Past Psychological History: Anxiety Smoking Status: Former smoker Past Alcohol Use History: Occasional Past Drug Use History: None Reported General Exam Limitations: no limitations General appearance: alert, in no apparent distress Head exam: Present: atraumatic, normocephalic, normal inspection Eye exam: Present: normal appearance, PERRL, EOMI. Absent: scleral icterus, conjunctival injection, periorbital swelling ENT exam: Present: normal exam, mucous membranes moist Neck exam: Present: normal inspection. Absent: tenderness, meningismus, lymphadenopathy Respiratory exam: Present: normal lung sounds bilaterally. Absent: respiratory distress, wheezes, rales, rhonchi, stridor Cardiovascular Exam: Present: regular rate, normal rhythm, normal heart sounds. Absent: systolic murmur, diastolic murmur, rubs, gallop, clicks GI/Abdominal exam: Present: soft, normal bowel sounds. Absent: distended, tenderness, guarding, rebound, rigid Extremities exam: Present: normal inspection, full ROM, normal capillary refill. Absent: tenderness, pedal edema, joint swelling, calf tenderness Back exam: Present: normal inspection Neurological exam: Present: alert, oriented X3, CN II-XII intact Psychiatric exam: Present: normal affect, normal mood Skin exam: Present: warm, dry, intact, normal color. Absent: rash Course Vital Signs 04/02/19 19:24 Temperature 98.1 F Pulse Rate 75 Respiratory 16 Rate Blood Pressure 115/68 O2 Sat by Pulse 100 Oximetry Medical Decision Making - Medical Decision Making The patient is placed in room 24. Thoracic difficulty was performed. We did conduct laboratory studies and the patient was sent for ultrasound. CBC is normal. CMP shows a mildly elevated AST and ALTs. Beta Quant is 153. Urinalysis shows moderate blood, 26 red blood cells and rare bacteria. Ultrasound demonstrates no signs of an intrauterine . Blood type is O+. I discussed the diagnosis with the patient. At this time she will be given a prescription for a beta Quant in 2 days. The results will be transmitted to [facility]. I also obtained the patient's phone number. If she has any worsening symptoms she should return to the emergency room. She needs to follow-up with OB without fail to ensure that her beta Quant improves and it does demonstrate a signs of intrauterine or if she is miscarrying and it returns to 0. The patient understood this. She is discharged home in stable condition - Lab Data Result diagrams: 04/02/19 19:55 04/02/19 19:55 Lab Results 04/02/19 04/02/19 04/02/19 Range/Units 19:55 19:55 19:55 WBC 10.2 (3.8-10.6) k/uL RBC 4.85 (3.80-5.40) m/uL Hgb 14.2 (11.4-16.0) gm/dL Hct 42.9 (34.0-46.0) % MCV 88.5 (80.0-100.0) fL MCH 29.4 (25.0-35.0) pg MCHC 33.2 (31.0-37.0) g/dL RDW 13.0 (11.5-15.5) % Plt Count 281 (150-450) k/uL Neutrophils % 58 % Lymphocytes % 30 % Monocytes % 4 % Eosinophils % 5 % Basophils % 1 % Neutrophils # 5.9 (1.3-7.7) k/uL Lymphocytes # 3.1 (1.0-4.8) k/uL Monocytes # 0.4 (0-1.0) k/uL Eosinophils # 0.5 (0-0.7) k/uL Basophils # 0.1 (0-0.2) k/uL PT (9.0-12.0) sec INR (<1.2) APTT (22.0-30.0) sec Sodium 140 (137-145) mmol/L Potassium 3.9 (3.5-5.1) mmol/L Chloride 106 (98-107) mmol/L Carbon Dioxide 25 (22-30) mmol/L Anion Gap 9 mmol/L BUN 14 (7-17) mg/dL Creatinine 0.62 (0.52-1.04) mg/dL Est GFR (CKD-EPI)AfAm >90 (>60 ml/min/1.73 sqM) Est GFR (CKD-EPI)NonAf >90 (>60 ml/min/1.73 sqM) Glucose 81 (74-99) mg/dL Calcium 9.9 (8.4-10.2) mg/dL Total Bilirubin 0.3 (0.2-1.3) mg/dL AST 42 H (14-36) U/L ALT 41 H (4-34) U/L Alkaline Phosphatase 79 (38-126) U/L Total Protein 7.3 (6.3-8.2) g/dL Albumin 4.4 (3.5-5.0) g/dL HCG, Quant 153.7 mIU/mL Urine Color Urine Appearance (Clear) Urine pH (5.0-8.0) Ur Specific [place] (1.001-1.035) Urine Protein (Negative) Urine Glucose (UA) (Negative) Urine Ketones (Negative) Urine Blood (Negative) Urine Nitrite (Negative) Urine Bilirubin (Negative) Urine Urobilinogen (<2.0) mg/dL Ur Leukocyte Esterase (Negative) Urine RBC (0-5) /hpf Urine WBC (0-5) /hpf Ur Squamous Epith Cells (0-4) /hpf Urine Bacteria (None) /hpf Urine Mucus (None) /hpf Blood Type O Positive Blood Type Recheck No Previous Record Bld Type Recheck Status [facility] ONLY 04/02/19 04/02/19 Range/Units 19:55 19:55 WBC (3.8-10.6) k/uL RBC (3.80-5.40) m/uL Hgb (11.4-16.0) gm/dL Hct (34.0-46.0) % MCV (80.0-100.0) fL MCH (25.0-35.0) pg MCHC (31.0-37.0) g/dL RDW (11.5-15.5) % Plt Count (150-450) k/uL Neutrophils % % Lymphocytes % % Monocytes % % Eosinophils % % Basophils % % Neutrophils # (1.3-7.7) k/uL Lymphocytes # (1.0-4.8) k/uL Monocytes # (0-1.0) k/uL Eosinophils # (0-0.7) k/uL Basophils # (0-0.2) k/uL PT 9.7 (9.0-12.0) sec INR 0.9 (<1.2) APTT 25.0 (22.0-30.0) sec Sodium (137-145) mmol/L Potassium (3.5-5.1) mmol/L Chloride (98-107) mmol/L Carbon Dioxide (22-30) mmol/L Anion Gap mmol/L BUN (7-17) mg/dL Creatinine (0.52-1.04) mg/dL Est GFR (CKD-EPI)AfAm (>60 ml/min/1.73 sqM) Est GFR (CKD-EPI)NonAf (>60 ml/min/1.73 sqM) Glucose (74-99) mg/dL Calcium (8.4-10.2) mg/dL Total Bilirubin (0.2-1.3) mg/dL AST (14-36) U/L ALT (4-34) U/L Alkaline Phosphatase (38-126) U/L Total Protein (6.3-8.2) g/dL Albumin (3.5-5.0) g/dL HCG, Quant mIU/mL Urine Color Light Yellow Urine Appearance Clear (Clear) Urine pH 7.0 (5.0-8.0) Ur Specific [place] 1.009 (1.001-1.035) Urine Protein Negative (Negative) Urine Glucose (UA) Negative (Negative) Urine Ketones Negative (Negative) Urine Blood Moderate H (Negative) Urine Nitrite Negative (Negative) Urine Bilirubin Negative (Negative) Urine Urobilinogen <2.0 (<2.0) mg/dL Ur Leukocyte Esterase Negative (Negative) Urine RBC 26 H (0-5) /hpf Urine WBC <1 (0-5) /hpf Ur Squamous Epith Cells 1 (0-4) /hpf Urine Bacteria Rare H (None) /hpf Urine Mucus Rare H (None) /hpf Blood Type Blood Type Recheck Bld Type Recheck Status Disposition Clinical Impression: Vaginal bleeding in Disposition: HOME SELF-CARE Condition: Stable Instructions (If sedation given, give patient instructions): Threatened Miscarriage (ED) Additional Instructions: Please follow-up on Wednesday. You need to have your blood redrawn at the outpatient lab. The results will be sent to [facility]. Follow up with them for your results. Is patient prescribed a controlled substance at d/c from ED?: No Referrals: Cadence Hong MD [Primary Care Provider] - 1-2 days Time of Disposition: 21:24
== END 2019-04-02 21:36 | disposition home or self-care (01) ==
LOC: EC 19:18
DX: O20.9 Hemorrhage in early pregnancy, unspecified (principal); O99.340 Other mental disorders complicating pregnancy, unspecified trimester; F41.9 Anxiety disorder, unspecified; Z3A.00 Weeks of gestation of pregnancy not specified; Z79.899 Other long term (current) drug therapy; Z87.891 Personal history of nicotine dependence
CPT/HCPCS: 36415; 76801; 76817; 80053; 81001; 84702; 85025; 85610; 85730; 86900; 86901; 99284

== ENCOUNTER → 2019-04-04 | Outpatient (CLI) | payer OTHER | END | disposition home or self-care (01) | LOC: LABWHC1 10:48 | PROVIDERS: ATTEND Emergency Medicine | DX: O20.9 Hemorrhage in early pregnancy, unspecified (principal) | CPT/HCPCS: 36415; 84702 ==

== ENCOUNTER → 2019-04-11 | Outpatient (CLI) | payer OTHER | END | disposition home or self-care (01) | LOC: LABWHC1 11:10 | PROVIDERS: ATTEND Obstetrics & Gynecology Obstetrics | DX: O02.1 Missed abortion (principal) | CPT/HCPCS: 36415; 84702 ==

== ENCOUNTER 2019-07-26 19:01 | Emergency (ER) | payer OTHER ==
[2019-07-26 20:04] VITALS: RESP 18; TEMP 98.2
[2019-07-26] MEDS ORDERED: SODIUM CHLORIDE 0.9% 1,000 ML IV ONE (20:04)
[2019-07-26] MEDS ORDERED: SODIUM CHLORIDE 0.9% 1,000 ML IV SCH (20:15)
[2019-07-26 20:49] LABS: Basophils % (A) 0 %; Eosinophils # (A) 0.2 k/uL (0-0.7); Eosinophils % (A) 2 %; HCT 42.4 % (34.0-46.0); Lymphocytes % (A) 27 %; MCH 29.2 pg (25.0-35.0); MCHC 33.1 g/dL (31.0-37.0); MCV 88.4 fL (80.0-100.0); Mean Platelet Volume 7.7; Monocytes # (A) 0.5 k/uL (0-1.0); Monocytes % (A) 4 %; Neutrophils # (A) 7.3 k/uL (1.3-7.7); Neutrophils % (A) 65 %; Platelet Count 249 k/uL (150-450); WBC 11.1 k/uL (3.8-10.6)
[2019-07-26 20:57] LABS: Appearance,Urine Clear (Clear); Bacteria,Urine Occasional /hpf; Bilirubin,Urine Negative (Negative); Blood,Urine Negative (Negative); Color,Urine Yellow; Glucose,Urine (UA) Negative (Negative); Ketones,Urine 2+ (Negative); Leukocyte Esterase,Urine Large (Negative); Mucus,Urine Occasional /hpf; Nitrite,Urine Negative (Negative); PH, Urine 5.5 (5.0-8.0); Protein,Urine Trace (Negative); RBC,Urine 1 /hpf (0-5); Squamous Epithelial Cell,Urine 1 /hpf (0-4); Urobilinogen,Urine <2.0 mg/dL (<2.0); WBC,Urine 6 /hpf (0-5)
[2019-07-26 21:03] LABS: ALT 12 U/L (4-34); AST 19 U/L (14-36); African American GFR (CKD) >90 (>60 ml/min/1.73 sqM); Albumin 4.2 g/dL (3.5-5.0); Alkaline Phosphatase 64 U/L (38-126); Anion Gap 10 mmol/L; Blood Urea Nitrogen 9 mg/dL (7-17); Calcium 9.9 mg/dL (8.4-10.2); Carbon Dioxide 22 mmol/L (22-30); Chloride 103 mmol/L (98-107); Glucose 87 mg/dL (74-99); Non-African American GFR(CKD) >90 (>60 ml/min/1.73 sqM); Potassium 4.3 mmol/L (3.5-5.1); Sodium 135 mmol/L (137-145); Total Bilirubin 0.3 mg/dL (0.2-1.3); Total Protein 6.9 g/dL (6.3-8.2)
[2019-07-26] MEDS ORDERED: CEPHALEXIN 500MG STARTER PACK 4 CAP BTL PO STA (21:05)
[2019-07-26 21:46] VITALS: BP 126/76; PULSE 76
--- NOTE | 2019-07-26 22:00 | ED ---
Nausea/Vomiting/Diarrhea HPI - General Chief complaint: Nausea/Vomiting/Diarrhea Stated complaint: NVD Time Seen by Provider: 07/26/19 20:03 Source: patient Mode of arrival: ambulatory Limitations: no limitations - History of Present Illness Initial comments: 23yo female currently 8wks (Pt states US this week has normal HR and was IUP) patient states that she has had vomiting with this is concerned she is dehydrated she states she can only keep down cereal. Patient denies diarrhea chest pain shortness breath leg swelling hematemesis melena hematochezia fevers dysuria urgency frequency or any additional complaints upon arrival patient appears well no signs acute distress vital signs stable - Related Data Home Medications Medication Instructions Recorded Confirmed Escitalopram [Lexapro] 20 mg PO QAM 08/28/17 11/18/18 Methylphenidate HCl [Concerta] 36 mg PO DAILY 08/28/17 11/18/18 Minocycline HCl [Minocin] 100 mg PO DAILY 08/28/17 11/18/18 Apri 1 tab PO DAILY 09/19/18 11/18/18 guanFACINE HCL [guanFACINE HCL ER] 4 mg PO HS 11/18/18 11/18/18 Previous Rx's Medication Instructions Recorded Cephalexin [Keflex] 500 mg PO Q12HR 5 Days #10 cap 07/26/19 Allergies Allergy/AdvReac Type Severity Reaction Status Date / Time No Known Allergies Allergy Verified 07/26/19 20:04 Review of Systems ROS Statement: Those systems with pertinent positive or pertinent negative responses have been documented in the HPI. ROS Other: All systems not noted in ROS Statement are negative. Past Medical History Additional Past Medical History / Comment(s): broken arm, broken nose, learning disability, teurets History of Any Multi-Drug Resistant Organisms: None Reported Past Surgical History: Ear Surgery Additional Past Surgical History / Comment(s): cleft palate surgery Past Psychological History: Anxiety Smoking Status: Former smoker Past Alcohol Use History: Occasional Past Drug Use History: None Reported General Exam - General Exam Comments Initial Comments: General: The patient is awake and alert, in no distress, and does not appear acutely ill. Eye: +3 mm pupils are equal, round and reactive to light, extra-ocular movements are intact. No nystagmus. There is normal conjunctiva bilaterally. No signs of icterus. Cardiovascular: There is a regular rate and rhythm. No murmur, rub or gallop is appreciated. Respiratory: Lungs are clear to auscultation, respirations are non-labored, breath sounds are equal. No wheezes, stridor, rales, or rhonchi. Gastrointestinal: Soft, non-distended, non-tender abdomen without masses or organomegaly noted. There is no rebound or guarding present. Musculoskeletal: Normal ROM, no tenderness. Strength 5/5. Sensation intact. radial pulses equal bilaterally 2+. Neurological: A&O x 3. CN II-XII intact grossly, There are no obvious motor or sensory deficits. Coordination appears grossly intact. Speech is normal. Skin: Skin is warm and dry and no rashes or lesions are noted. Psychiatric: Cooperative, appropriate mood & affect, normal judgment. Limitations: no limitations Course Vital Signs 07/26/19 07/26/19 20:02 21:45 Temperature 98.2 F Pulse Rate 80 76 Respiratory 18 18 Rate Blood Pressure 105/71 126/76 O2 Sat by Pulse 96 100 Oximetry Medical Decision Making - Medical Decision Making Moist mucous membranes. Patient given fluid bolus. Patient has +2 ketones. Tolerating oral intake. Patient has less nausea on reevaluation. No active vomiting throughout stay. patient has no abdominal or pelvic complaints. Pt will be discharged with OBGYN f/u and return parameters for inability to tolerate oral intake. Patient agreeable. Dr Escalante who is attending provider is agreeable to this care plan and discharge. - Lab Data Result diagrams: 07/26/19 20:20 07/26/19 20:20 Lab Results 07/26/19 07/26/19 07/26/19 Range/Units 20:20 20:20 20:20 WBC 11.1 H (3.8-10.6) k/uL RBC 4.80 (3.80-5.40) m/uL Hgb 14.0 (11.4-16.0) gm/dL Hct 42.4 (34.0-46.0) % MCV 88.4 (80.0-100.0) fL MCH 29.2 (25.0-35.0) pg MCHC 33.1 (31.0-37.0) g/dL RDW 13.0 (11.5-15.5) % Plt Count 249 (150-450) k/uL Neutrophils % 65 % Lymphocytes % 27 % Monocytes % 4 % Eosinophils % 2 % Basophils % 0 % Neutrophils # 7.3 (1.3-7.7) k/uL Lymphocytes # 3.0 (1.0-4.8) k/uL Monocytes # 0.5 (0-1.0) k/uL Eosinophils # 0.2 (0-0.7) k/uL Basophils # 0.0 (0-0.2) k/uL Sodium 135 L (137-145) mmol/L Potassium 4.3 (3.5-5.1) mmol/L Chloride 103 (98-107) mmol/L Carbon Dioxide 22 (22-30) mmol/L Anion Gap 10 mmol/L BUN 9 (7-17) mg/dL Creatinine 0.49 L (0.52-1.04) mg/dL Est GFR (CKD-EPI)AfAm >90 (>60 ml/min/1.73 sqM) Est GFR (CKD-EPI)NonAf >90 (>60 ml/min/1.73 sqM) Glucose 87 (74-99) mg/dL Calcium 9.9 (8.4-10.2) mg/dL Total Bilirubin 0.3 (0.2-1.3) mg/dL AST 19 (14-36) U/L ALT 12 (4-34) U/L Alkaline Phosphatase 64 (38-126) U/L Total Protein 6.9 (6.3-8.2) g/dL Albumin 4.2 (3.5-5.0) g/dL Urine Color Yellow Urine Appearance Clear (Clear) Urine pH 5.5 (5.0-8.0) Ur Specific [place] 1.030 (1.001-1.035) Urine Protein Trace H (Negative) Urine Glucose (UA) Negative (Negative) Urine Ketones 2+ H (Negative) Urine Blood Negative (Negative) Urine Nitrite Negative (Negative) Urine Bilirubin Negative (Negative) Urine Urobilinogen <2.0 (<2.0) mg/dL Ur Leukocyte Esterase Large H (Negative) Urine RBC 1 (0-5) /hpf Urine WBC 6 H (0-5) /hpf Ur Squamous Epith Cells 1 (0-4) /hpf Urine Bacteria Occasional H (None) /hpf Urine Mucus Occasional H (None) /hpf Disposition Clinical Impression: Vomiting during , Dehydration Disposition: HOME SELF-CARE Condition: Good Instructions (If sedation given, give patient instructions): Nausea and Vomiting in (ED), Hyperemesis Gravidarum (ED) Additional Instructions: Please use medication as discussed. Please follow-up with OBGYN in the next week. Please return to emergency room if the symptoms increase or worsen or for any other concerns. Prescriptions: Cephalexin [Keflex] 500 mg PO Q12HR 5 Days #10 cap Is patient prescribed a controlled substance at d/c from ED?: No Referrals: Cadence Hong MD [Primary Care Provider] - 1-2 days Time of Disposition: 22:00
== END 2019-07-26 22:09 | disposition home or self-care (01) ==
LOC: EC 19:01
DX: O21.9 Vomiting of pregnancy, unspecified (principal); O99.281 Endocrine, nutritional and metabolic diseases complicating pregnancy, first trimester; E86.0 Dehydration; O99.341 Other mental disorders complicating pregnancy, first trimester; F41.9 Anxiety disorder, unspecified; Z79.899 Other long term (current) drug therapy; Z87.891 Personal history of nicotine dependence; Z3A.08 8 weeks gestation of pregnancy
CPT/HCPCS: 36415; 80053; 81001; 85025; 96360; 96361; 99284

== ENCOUNTER 2020-01-28 18:00 | Outpatient (CLI) | payer OTHER ==
[2020-01-28 18:49] VITALS: BP 109/74; PULSE 104; RESP 16; TEMP 96.3
--- NOTE | 2020-04-13 10:30 | P.MSEPDOC ---
Presenting Problems - Arrival Data Date of Arrival on Unit: 01/28/20 Time of Arrival on Unit: 18:00 Mode of Transport: Ambulatory - Complaint OB-Reason for Admission/Chief Complaint: Pain Comment: Back pain and lower abdominal cramping. Medical History - Information : 2 Para: 0 Term: 0 : 0 Abortions: Spontaneous or Elective: 0 Number of Living Children: 0 - Gestational Age Gestational Age by AMARA (wks/days): 34 Weeks and 4 Days Review of Systems - Review of Systems Constitutional: No problems Breast: No problems ENT: No problems Cardiovascular: No problems Respiratory: No problems Gastrointestinal: No problems Genitourinary: No problems Musculoskeletal: No problems Neurological: No problems Skin: No problems Vital Signs - Temperature Temperature: 96.3 F Temperature Source: Temporal Artery Scan - Pulse Right Brachial Pulse Rate: 104 Pulse Assessment Method: Automatic Cuff - Respirations Respiratory Rate: 16 Oxygen Delivery Method: Room Air O2 Sat by Pulse Oximetry: 99 - Blood Pressure Right Arm Blood Pressure: 109/74 Blood Pressure Mean: 85 Blood Pressure Source: Automatic Cuff Medical Screen Scoring (Pre) - Cervical Exam Dilation: Exam Deferred Effacement: Exam Deferred Membranes: Intact - Uterine Contractions Frequency: N/A Duration: N/A Intensity: N/A - Maternal Vital Signs Maternal Temperature: N/A Maternal Blood Pressure: N/A Signs of Preeclampsia: N/A Maternal Respirations: N/A - Maternal Trauma Maternal Trauma: N/A - Assessment - Baby A Baseline FHR: 145 Heart Rate - NICHD Category: Category I (Normal) = 0 NST: Reactive Position: N/A Station: N/A - Total Score - Baby A Total Score - Baby A: 0 - Total Score - Baby B Total Score - Baby B: 0 - Total Score - Baby C Total Score - Baby C: 0 - Level of Risk - Baby A Level of Risk - Baby A: Low (0-5) - Level of Risk - Baby B Level of Risk - Baby B: Low (0-5) - Level of Risk - Baby C Level of Risk - Baby C: Low (0-5) Physician Notification (Pre) - Physician Notified Physician Notified Date: 01/28/20 Physician Notified Time: 18:32 New Order Received: Yes - Notification Comment Comment: Dr. Lopez called and given report on pt. Pt c/o. Reactive NST. . movement noted per pt and palpation. VS WNL. No contractions noted per monitor. Pt has. apt on 01/[address] Ha. Orders recieved to d/c pt to home. Disposition - Disposition OB Disposition: Discharge to home Discharge Date: 01/28/20 Discharge Time: 18:40 I agree with the RN Medical Screening Exam: Yes Physician's MSE Comment: I have neither seen nor examined the patient. Case reviewed; plan agreed upon as documented in EMR&OBIX.: Yes Diagnosis: RELATED CONDITIONS, UNSPECIFIED, THIRD TRIMESTER
== END 2020-01-28 18:40 | disposition home or self-care (01) ==
LOC: FBPOP 18:00
PROVIDERS: ATTEND Obstetrics & Gynecology
DX: O26.93 Pregnancy related conditions, unspecified, third trimester (principal); Z3A.34 34 weeks gestation of pregnancy
CPT/HCPCS: 59025; G0463; 99213

== ENCOUNTER 2020-02-15 00:34 | Outpatient (CLI) | payer OTHER ==
[2020-02-15 00:49] VITALS: PULSE 81; RESP 16; TEMP 96.8
[2020-02-15 01:03] VITALS: BP 120/83
--- NOTE | 2020-04-16 19:21 | P.MSEPDOC ---
Presenting Problems - Arrival Data Date of Arrival on Unit: 02/15/20 Time of Arrival on Unit: 00:34 Mode of Transport: Ambulatory - Complaint OB-Reason for Admission/Chief Complaint: Decreased Movement Comment: pt comes to triage states baby has not been as active as usual. Patient states the last time she felt the baby kick was at 23:00. Medical History - Information : 2 Para: 0 Term: 0 : 0 Abortions: Spontaneous or Elective: 0 Number of Living Children: 0 - Gestational Age Gestational Age by AMARA (wks/days): 45 Weeks and 6 Days Review of Systems - Review of Systems Constitutional: No problems Breast: No problems ENT: No problems Cardiovascular: No problems Respiratory: No problems Gastrointestinal: No problems Genitourinary: No problems Musculoskeletal: No problems Neurological: No problems Skin: No problems Vital Signs - Temperature Temperature: 96.8 F Temperature Source: Temporal Artery Scan - Pulse Right Brachial Pulse Rate: 81 Pulse Assessment Method: Automatic Cuff - Respirations Respiratory Rate: 16 Oxygen Delivery Method: Room Air O2 Sat by Pulse Oximetry: 99 - Blood Pressure Right Arm Blood Pressure: 120/83 Blood Pressure Mean: 95 Blood Pressure Source: Automatic Cuff Medical Screen Scoring (Pre) - Cervical Exam Dilation: 1-3 cm = 1 Membranes: Intact - Uterine Contractions Frequency: N/A Duration: N/A Intensity: N/A - Maternal Vital Signs Maternal Temperature: N/A Maternal Blood Pressure: N/A Signs of Preeclampsia: N/A Maternal Respirations: N/A - Maternal Trauma Maternal Trauma: N/A - Assessment - Baby A Baseline FHR: 135 Heart Rate - NICHD Category: Category I (Normal) = 0 NST: Reactive Position: N/A Station: N/A - Total Score - Baby A Total Score - Baby A: 1 - Total Score - Baby B Total Score - Baby B: 1 - Total Score - Baby C Total Score - Baby C: 1 - Level of Risk - Baby A Level of Risk - Baby A: Low (0-5) - Level of Risk - Baby B Level of Risk - Baby B: Low (0-5) - Level of Risk - Baby C Level of Risk - Baby C: Low (0-5) Physician Notification (Pre) - Physician Notified Physician Notified Date: 02/15/20 Physician Notified Time: 00:55 New Order Received: Yes - Notification Comment Comment: RN spoke with Dr. De. RN reported patient had decreased movement. Patient had a reactive NST, cervical exam was 1 and thick, vital signs WNL. Dr. De states patient may be discharged with instructions to keep her appointment. with Dr. Ha this morning at 09:00. Patient updated on plan of care and was in. agreement. Disposition - Disposition OB Disposition: Discharge to home Discharge Date: 02/15/20 Discharge Time: 01:05 I agree with the RN Medical Screening Exam: Yes Case reviewed; plan agreed upon as documented in EMR&OBIX.: Yes Diagnosis: decreased movemnt
== END 2020-02-15 01:04 | disposition home or self-care (01) ==
LOC: FBPOP 00:34
PROVIDERS: ATTEND Obstetrics & Gynecology
DX: O36.8130 Decreased fetal movements, third trimester, not applicable or unspecified (principal); Z3A.49 Greater than 42 weeks gestation of pregnancy
CPT/HCPCS: 59025; G0463; 99213

== ENCOUNTER 2020-02-25 05:54 | Outpatient (CLI) | payer OTHER ==
[2020-02-25 07:45] LABS: Protein/Creatinine Ratio,Urine 0.234
[2020-02-25 08:17] VITALS: BP 128/89; PULSE 88; RESP 18; TEMP 36.1
--- NOTE | 2020-04-16 19:18 | P.MSEPDOC ---
Presenting Problems - Arrival Data Date of Arrival on Unit: 02/25/20 Time of Arrival on Unit: 05:54 Mode of Transport: Wheelchair - Complaint OB-Reason for Admission/Chief Complaint: Possible Onset of Labor Comment: contractions, spotting, pain Medical History - Information : 1 Para: 0 Term: 0 : 0 Abortions: Spontaneous or Elective: 0 Number of Living Children: 0 - Gestational Age Gestational Age by AMARA (wks/days): 38 Weeks and 4 Days Review of Systems - Review of Systems Constitutional: No problems Breast: No problems ENT: No problems Cardiovascular: No problems Respiratory: No problems Gastrointestinal: No problems Genitourinary: No problems Musculoskeletal: No problems Neurological: No problems Skin: No problems Vital Signs - Temperature Temperature: 36.1 F - Pulse Right Brachial Pulse Rate: 88 Pulse Assessment Method: Automatic Cuff - Respirations Respiratory Rate: 18 Oxygen Delivery Method: Room Air - Blood Pressure Right Arm Blood Pressure: 128/89 Blood Pressure Mean: 102 Blood Pressure Source: Automatic Cuff Medical Screen Scoring (Pre) - Cervical Exam Dilation: 1-3 cm = 1 Effacement: More than 50% = 2 Membranes: Intact - Uterine Contractions Frequency: > 5 minutes apart = 1 Duration: > 40 seconds = 2 Intensity: N/A - Maternal Vital Signs Maternal Temperature: N/A Maternal Blood Pressure: N/A Signs of Preeclampsia: N/A Maternal Respirations: N/A - Maternal Trauma Maternal Trauma: N/A - Assessment - Baby A Baseline FHR: 130 Heart Rate - NICHD Category: Category I (Normal) = 0 NST: Reactive Position: N/A Station: N/A - Total Score - Baby A Total Score - Baby A: 6 - Total Score - Baby B Total Score - Baby B: 6 - Total Score - Baby C Total Score - Baby C: 6 - Level of Risk - Baby A Level of Risk - Baby A: Medium (6-9) - Level of Risk - Baby B Level of Risk - Baby B: Medium (6-9) - Level of Risk - Baby C Level of Risk - Baby C: Medium (6-9) Physician Notification (Pre) - Physician Notified Physician Notified Date: 02/25/20 Physician Notified Time: 08:05 New Order Received: Yes - Notification Comment Comment: Dc home. return with continued or increased symptoms. Appt. In office on Tues. Disposition - Disposition OB Disposition: Discharge to home Discharge Date: 02/25/20 Discharge Time: 08:14 I agree with the RN Medical Screening Exam: Yes Case reviewed; plan agreed upon as documented in EMR&OBIX.: Yes Diagnosis: rule out labor
== END 2020-02-25 08:05 | disposition home or self-care (01) ==
LOC: FBPOP 05:54
PROVIDERS: ATTEND Obstetrics & Gynecology
DX: O26.893 Other specified pregnancy related conditions, third trimester (principal); Z3A.37 37 weeks gestation of pregnancy
CPT/HCPCS: 59025; 82570; 84156; G0463; 99213

== ENCOUNTER 2020-02-25 16:30 | Inpatient (IN) | payer OTHER ==
[2020-02-25] MEDS ORDERED: TERBUTALINE 1 MG/ML VIAL SQ PRN (17:11)
[2020-02-25] MEDS ORDERED: METHYLERGONOVINE 0.2 MG/ML 1 ML AMP IM PRN (17:11)
[2020-02-25] MEDS ORDERED: LIDOCAINE 0.5% (PF) 5 MG/ML (50 ML SDV) SQ PRN (17:11)
[2020-02-25] MEDS ORDERED: CARBOPROST TROMETHAMINE 250 MCG/ML 1 ML AMP IM PRN (17:11)
[2020-02-25] MEDS ORDERED: OXYTOCIN 10 UNIT/ML 1 ML VIAL IM PRN (17:11)
[2020-02-25] MEDS ORDERED: OXYTOCIN 30 UNITS/500 ML NS 30 UNIT in SALINE 1 500ML.BAG IV SCH (17:15)
[2020-02-25] MEDS: LACTATED RINGERS 1,000 ML IV SCH ×2 (17:30→21:07)
[2020-02-25 17:43] LABS: Basophils # (A) 0.1 k/uL (0-0.2); Basophils % (A) 1 %; Eosinophils # (A) 0.2 k/uL (0-0.7); Eosinophils % (A) 1 %; HCT 41.5 % (34.0-46.0); HGB 14.1 gm/dL (11.4-16.0); Lymphocytes # (A) 2.4 k/uL (1.0-4.8); Lymphocytes % (A) 13 %; MCH 29.5 pg (25.0-35.0); MCHC 33.9 g/dL (31.0-37.0); MCV 86.9 fL (80.0-100.0); Mean Platelet Volume 7.8; Monocytes # (A) 0.6 k/uL (0-1.0); Monocytes % (A) 3 %; Neutrophils # (A) 14.9 k/uL (1.3-7.7); Neutrophils % (A) 81 %; Platelet Count 263 k/uL (150-450); RBC 4.78 m/uL (3.80-5.40); RDW 13.2 % (11.5-15.5); WBC 18.3 k/uL (3.8-10.6)
[2020-02-25] MEDS ORDERED: BUTORPHANOL 1 MG/ML 1 ML VIAL IV PRN (17:59)
[2020-02-25] MEDS ORDERED: ROPIVACAINE 100 MG, fentaNYL (PF) 200 MCG in SODIUM CHLORIDE 0.9% 76 ML EPIDURAL ONE (20:29)
[2020-02-26] MEDS: LACTATED RINGERS 1,000 ML IV SCH ×4 (02:27→21:03)
--- NOTE | 2020-02-26 06:46 | P.HPOB ---
History of Present Illness H&P Date: 02/26/20 Chief Complaint: Spontaneous rupture of membranes at 38-5/7 weeks This is a 24-year-old 2 para 0010 woman who is admitted at 38-5/7 weeks gestation with spontaneous rupture of membranes in early labor. Estimated due date is 03/06/2020 based on first trimester ultrasound. She is had increasing contraction activity over the last several days. She had spontaneous rupture of membranes at approximately 345 on 02/25/2020. She presented to labor and delivery triage where rupture membranes was confirmed. Light meconium-stained fluid was noted. She was 3 cm dilated at that time. She was regularly braxton. She was admitted. has been uncomplicated. Her obstetric history is significant for early miscarriage in April 2019. Laboratory data: Blood type O positive, antibody screen negative, rubella immune, VDRL nonreactive, hepatitis B surface antigen negative, HIV negative, gonorrhea and chlamydia cultures negative, group B strep negative. Past Medical History Additional Past Medical History / Comment(s): broken arm, broken nose, learning disability, teurets History of Any Multi-Drug Resistant Organisms: None Reported Past Surgical History: Ear Surgery Additional Past Surgical History / Comment(s): cleft palate surgery Past Anesthesia/Blood Transfusion Reactions: No Reported Reaction Additional Past Anesthesia/Blood Transfusion Reaction / Comment(s): Pt states she is difficult to wake up Past Psychological History: Anxiety, Depression Smoking Status: Never smoker Past Alcohol Use History: Occasional Past Drug Use History: None Reported - Past Family History Father Family Medical History: No Reported History Mother History Unknown: Yes Medications and Allergies Home Medications Medication Instructions Recorded Confirmed Type Pnv No.95/Ferrous Fum/Folic AC 1 tab PO ONCE 01/28/20 02/25/20 History [ Multivitamin Tablet] Fluticasone Nasal [place] [Flonase 1 spray NASAL BID PRN 02/15/20 02/25/20 History Nasal [place]] Allergies Allergy/AdvReac Type Severity Reaction Status Date / Time No Known Allergies Allergy Verified 02/25/20 17:09 Exam Vital Signs Temp Pulse Resp BP 02/25/20 18:16 97.0 F L 122 H 18 130/84 Intake and Output 02/25/20 02/25/20 02/26/20 14:59 22:59 06:59 Output Total 300 Balance -300 Output: Urine 300 Other: # Voids 2 Weight 68.039 kg Upon initial evaluation the patient is resting comfortably with an epidural. Targeted physical exam is performed. Cervix is 6+ centimeters dilated 90% effaced and the vertex is in the -1 station with Formation. heart tones are category 2 with good variability however some episodes of irregular decelerations. She is braxton approximately every 3-5 minutes. Results Result Diagrams: 02/25/20 17:30 Abnormal Lab Results - Last 24 Hours (Table) 02/25/20 Range/Units 17:30 WBC 18.3 H (3.8-10.6) k/uL Neutrophils # 14.9 H (1.3-7.7) k/uL Assessment and Plan (1) 38 weeks gestation of Current Visit: Yes Status: Acute Code(s): Z3A.38 - 38 WEEKS GESTATION OF SNOMED Code(s): 29080765 (2) Spontaneous rupture of membranes Current Visit: Yes Status: Acute Code(s): SAQ7638 - SNOMED Code(s): 742882350 (3) Meconium in amniotic fluid Current Visit: Yes Status: Acute Code(s): P96.83 - MECONIUM STAINING SNOMED Code(s): 4704531 Plan: 24-year-old 2 para 0010 woman at 38-5/7 weeks gestation admitted with spontaneous rupture of membranes. She is making slow progression through labor. Possible malpresentation. She has Rh+ and group B strep negative. Close ongoing monitoring.
[2020-02-26] MEDS ORDERED: PENICILLIN G POTASSIUM 5,000,000 UNIT in DEXTROSE 5% IN WATER 100 ML IVPB STA ×2 (08:34)
[2020-02-26] MEDS ORDERED: CITRIC ACID-SODIUM CITRATE 15 ML CUP PO ONE (09:58)
[2020-02-26] MEDS ORDERED: MIDAZOLAM 2 MG/2 ML VIAL ONE (10:33)
[2020-02-26] MEDS ORDERED: DEXAMETHASONE SOD PHOSPHATE 10 MG/ML 1 ML VIAL ONE (10:33)
[2020-02-26] MEDS ORDERED: NALBUPHINE 10 MG/ML (1 ML AMP) ONE (10:33)
[2020-02-26] MEDS ORDERED: ONDANSETRON 4 MG/2 ML VIAL ONE (10:33)
[2020-02-26] MEDS ORDERED: KETOROLAC 15 MG/ML 1 ML VIAL ONE (10:33)
[2020-02-26] MEDS ORDERED: MORPHINE SULFATE (PF) 0.3 MG/0.3 ML SYR ONE (10:33)
[2020-02-26] MEDS ORDERED: OXYTOCIN 10 UNIT/ML 1 ML VIAL ONE (10:33)
[2020-02-26] MEDS ORDERED: diphenhydrAMINE 50 MG/ML 1 ML VIAL ONE (10:33)
[2020-02-26] MEDS ORDERED: diphenhydrAMINE 50 MG/ML 1 ML VIAL IVP PRN ×3 (11:09→11:33)
[2020-02-26] MEDS ORDERED: NALOXONE 0.4 MG/ML 1 ML VIAL IV PRN (11:09)
[2020-02-26] MEDS ORDERED: ONDANSETRON 4 MG/2 ML VIAL IVP PRN ×2 (11:09→11:33)
[2020-02-26] MEDS ORDERED: MORPHINE SULFATE 2 MG/ML SYRINGE IVP PRN (11:09)
[2020-02-26] MEDS ORDERED: METOCLOPRAMIDE 5 MG/ML 2 ML VIAL IVP PRN (11:33)
[2020-02-26] MEDS ORDERED: diphenhydrAMINE 50 MG CAP PO PRN (11:33)
[2020-02-26] MEDS ORDERED: diphenhydrAMINE 25 MG CAP PO PRN (11:33)
[2020-02-26] MEDS ORDERED: HYDROcodone/APAP 5-325MG 1 EACH TAB PO PRN (11:33)
[2020-02-26] MEDS ORDERED: ZOLPIDEM 5 MG TAB PO PRN (11:33)
[2020-02-26] MEDS ORDERED: SIMETHICONE 80 MG CHEWABLE PO PRN (11:33)
--- NOTE | 2020-02-26 11:33 | P.OP ---
Date of Procedure: 02/26/20 Preoperative Diagnosis: Arrest of dilatation and descent, category 2 heart, light meconium-stained fluid, maternal alcohol syndrome, maternal syndrome, maternal anxiety and depression Postoperative Diagnosis: Liveborn male infant, left occiput transverse arrest, nuchal cord 1. Procedure(s) Performed: Primary low transverse section Anesthesia: epidural Surgeon: Chelsea Kay Restoration Ecologist #1: Dung Lopez Estimated Blood Loss (ml): 400 IV fluids (ml): 600 Urine output (ml): 200 Pathology: other (Placenta) Condition: stable Disposition: PACU Description of Procedure: Penicillin G prophylaxis was given for prolonged rupture of membranes. Patient dilated to 7-8 cm dilated, -1 station, 80% effaced. No further cervical dilatation was noted after 3 and half hours. This was despite oxytocin augmentation. Decision was made to proceed with primary low transverse section. Informed consent is reviewed signed witnessed and dated. Patient is brought to the operating suite where the previously placed epidural was "topped off" per the anesthesia staff. She is then put in the dorsal supine position with left lateral uterine displacement. The abdomen is prepped and draped in the usual sterile fashion, 2 g of Ancef given, Marcelo placed to direct drainage. The appropriate timeout is performed. The analgesia is checked and noted to be adequate. A low transverse skin incision is made in this is carried down through the subcutaneous tissue which is approximately 2 cm in depth. Fascia is isolated, scored, extended bilaterally with curved Can scissors. Peritoneum is next identified and incised, there is no bowel or bladder involvement. A low transverse uterine incision is made in this is extended bilaterally. Meconium-stained fluid is noted upon entering the uterine cavity. has a large amount of, and is in the left occiput transverse position. There is a nuchal cord 1 that was reduced. The oropharynx, nasopharynx, and external nares are carefully bulb suctioned. Patient is officially delivered of a liveborn male infant at 1056 hours. Umbilical cord is doubly clamped and ligated, he is handed to waiting nurses for evaluation where scores of 9 and 9 at one and 5 minutes respectively are given. The placentas delivered manually, it is inspected and noted to be darkly meconium stained. It is otherwise intact with trivascular cord. It is sent to pathology for further evaluation. Uterus is massaged and then externalized. It is swept clean with a sterile sponge to avoid any retained products of conception. The edges of the uterine incision are grasped with Edge clamps. The uterus is closed in a two-step fashion, first layer running locking with 0 Vicryl, second layer imbricated with the same. Hemostasis is excellent. Bilateral tubes and ovaries are inspected and noted to be normal. No uterine defects are noted. The abdomen is suctioned with suction on guard posterior to the uterus. Uterus is gently placed back into the abdominal cavity. Bilateral gutters are inspected and cleaned. Peritoneum is allowed to close by secondary intention. Fascia is closed in a running stitch of 0 Vicryl suture for excell ent reapproximation. Subcutaneous tissue is irrigated, clean and dry. It is reapproximated with 3-0 Vicryl in a running stitch. 4-0 undyed Vicryl issues for final skin closure. Steri-Strips and Mastisol are applied to the wound. Patient is brought back to the recovery room in very good condition with stable vital signs. All sponge needle and instrument counts are correct. Marcelo is noted to be draining clear urine.
[2020-02-26] MEDS ORDERED: PENICILLIN G POTASSIUM 2,500,000 UNIT in DEXTROSE 5% IN WATER 100 ML IVPB SCH ×2 (13:00)
[2020-02-26] MEDS: KETOROLAC 15 MG/ML 1 ML VIAL IVP SCH ×3 (13:24→23:27)
[2020-02-26] MEDS: SENNOSIDES-DOCUSATE SODIUM 1 EACH TAB PO SCH (21:03)
[2020-02-27] MEDS: KETOROLAC 15 MG/ML 1 ML VIAL IVP SCH ×2 (06:02→13:45)
--- NOTE | 2020-02-27 07:21 | P.PN ---
Progress Note - Text Progress Note Date: 02/27/20 (041) Anesthesia Postop day 1 Subjective: Status Post section with Duramorph. Patient seen and examined. Doing well without complaint. VAS 0. No nausea or vomiting. Mild pruritus tolerable.. Afebrile. Gross lower extremity strength intact. Without apparent anesthetic complications. Objective: Vital signs reviewed Heart: Regular Rate Lungs: Good chest excursion Abdomen: Appears nondistended Assessment: Status post with Duramorph postop day 1 Plan: Continue current care with your medical management.
--- NOTE | 2020-02-27 07:39 | P.PN ---
Subjective Progress Note Date: 02/27/20 Principal diagnosis: Postoperative day #1 Slept well. Positive flatus. No complaints. Objective - Vital Signs Vital signs: Vital Signs Temp 97.6 F 02/27/20 03:36 Pulse 81 02/27/20 03:36 Resp 18 02/27/20 06:00 BP 104/70 02/27/20 03:36 Pulse Ox 98 02/27/20 03:36 Intake & Output 02/26/20 02/27/20 02/27/20 18:59 06:59 18:59 Output Total 1400 800 Balance -1400 -800 Output: Urine 1400 800 Uretheral (Marcelo) 800 Other: # Voids 1 - Constitutional General appearance: Present: average body habitus, cooperative - EENT Eyes: Present: PERRLA ENT: Present: hearing grossly normal - Respiratory Respiratory: bilateral: CTA - Cardiovascular Rhythm: regular - Gastrointestinal General gastrointestinal: Present: normal bowel sounds - Genitourinary Genitourinary Comment(s): Incision clean and dry, intact, Steri-Strips applied. Fundus firm, midline, symmetric, 18 week size. - Integumentary Integumentary: Present: normal - Neurologic Neurologic: Present: CNII-XII intact - Musculoskeletal Musculoskeletal: Present: gait normal, strength equal bilaterally - Psychiatric Psychiatric: Present: A&O x's 3, appropriate affect, intact judgment & insight - Labs CBC & Chem 7: 02/25/20 17:30 Assessment and Plan Assessment: Doing well postoperative day #1 Plan: Continue postoperative care. Circumcision now. Likely discharge home tomorrow. Time with Patient: Less than 30
[2020-02-27 08:00] LABS: Basophils % (A) 0 %; Eosinophils # (A) 0.1 k/uL (0-0.7); Eosinophils % (A) 0 %; HCT 30.3 % (34.0-46.0); Lymphocytes # (A) 2.7 k/uL (1.0-4.8); Lymphocytes % (A) 16 %; MCH 29.5 pg (25.0-35.0); MCHC 32.9 g/dL (31.0-37.0); MCV 89.5 fL (80.0-100.0); Mean Platelet Volume 8.1; Monocytes # (A) 0.7 k/uL (0-1.0); Monocytes % (A) 4 %; Neutrophils # (A) 12.9 k/uL (1.3-7.7); Neutrophils % (A) 78 %; Platelet Count 245 k/uL (150-450); RBC 3.39 m/uL (3.80-5.40); RDW 13.7 % (11.5-15.5); WBC 16.6 k/uL (3.8-10.6)
[2020-02-27] MEDS: SENNOSIDES-DOCUSATE SODIUM 1 EACH TAB PO SCH ×2 (08:03→19:42)
[2020-02-27] MEDS: ESCITALOPRAM 10 MG TAB PO SCH (11:06)
[2020-02-27] MEDS: ACETAMINOPHEN TAB 325 MG TAB PO PRN ×2 (11:09→17:39)
[2020-02-27 12:04] VITALS: RESP 18
[2020-02-27] MEDS: IBUPROFEN 600 MG TAB PO PRN ×2 (13:56→20:39)
[2020-02-28] MEDS: IBUPROFEN 600 MG TAB PO PRN ×2 (02:15→08:57)
--- NOTE | 2020-02-28 08:03 | P.DS ---
Providers Date of admission: 02/25/20 17:14 Expected date of discharge: 02/28/20 Attending physician: Yaneth De Primary care physician: Marianne Ha [facility] Course: This is a 24-year-old white female 2 para 0010 EDC 03/06/2020 at 38-4/7 weeks' gestation. Patient presented in active labor. Her is remarkable for blood type O positive, rubella status immune, group B strep cultures negative. Please see admitting history and physical for details. Light meconium-stained fluid was noted. Epidural was placed. Oxytocin was started and titrated. Patient had arrest of dilatation and descent at 7-8 cm, and therefore decision was made to proceed with primary low transverse section. Infant was noted to be the left occiput transverse position, with 6 lbs. 11 oz., or 3040 g. Baby had Apgars of 9 and 9 at one and 5 minutes respectively and a nuchal cord 1. Please see dictated delivery note for details. This morning the patient is doing well. She is voiding, ambulating, passing flatus without difficulty. Vital signs are stable and she is afebrile. Fundus is firm and in the midline, symmetric and 18 week size. Extremities are negative for edema. Patient has been restarted on Lexapro 10 mg daily for anxiety and depression. In addition, I have started her back on Intuniv 1 mg, and a prescription is provided. Patient has a history of seizure disorder and Tourette's syndrome, along with anxiety and depression. She is judged to be in good condition for discharge home today. I have reminded her however that she should call her neurologist in [facility] and establishing appointment next week for follow-up. She states that she will do so. has been circumcised. Patient will be discharged home later today. She will follow-up with Dr. Ha in the office in 2 weeks for incision check. Proper incisional care is reviewed today. She will use [id number] Advil or Aleve, or Motrin as needed for pain. I've asked her to call with any fevers shakes or chills, foul smelling or copious lochia, with the passage of large blood clots, with any pain not alleviated by [id number] products, or indeed with any concerns. Assessment: Doing well postoperative day number two Patient Condition at Discharge: Good Plan - Discharge Summary Discharge Rx Participant: No New Discharge Prescriptions: No Action Pnv No.95/Ferrous Fum/Folic AC [ Multivitamin Tablet] 1 tab PO ONCE Fluticasone Nasal [place] [Flonase Nasal [place]] 1 spray NASAL BID PRN PRN Reason: Allergy Symptoms Discharge Medication List Pnv No.95/Ferrous Fum/Folic AC [ Multivitamin Tablet] 1 tab PO ONCE 01/28/20 [History] Fluticasone Nasal [place] [Flonase Nasal [place]] 1 spray NASAL BID PRN 02/15/20 [History] Follow up Appointment(s)/Referral(s): Marianne Ha DO [Primary Care Provider] - 2 Weeks
[2020-02-28] MEDS: SENNOSIDES-DOCUSATE SODIUM 1 EACH TAB PO SCH (08:58)
[2020-02-28] MEDS: ESCITALOPRAM 10 MG TAB PO SCH (08:58)
[2020-02-28 09:45] VITALS: BP 112/67; PULSE 71; TEMP 98
== END 2020-02-28 13:20 | disposition home or self-care (01) | DRG 788 ==
LOC: FBPOP 16:30 → 4FBP 17:14
PROVIDERS: ADMIT Obstetrics & Gynecology; ATTEND Obstetrics & Gynecology
PROC: 3E0R3NZ Introduction of Analgesics, Hypnotics, Sedatives into Spinal Canal, Percutaneous Approach (ICD-10-PCS; 2020-02-25)
PROC: 00HU33Z Insertion of Infusion Device into Spinal Canal, Percutaneous Approach (ICD-10-PCS; 2020-02-25)
PROC: 10D00Z1 Extraction of Products of Conception, Low, Open Approach (ICD-10-PCS; principal; 2020-02-26 10:51)
DX: O99.354 Diseases of the nervous system complicating childbirth (principal); Q86.0 Fetal alcohol syndrome (dysmorphic); O77.0 Labor and delivery complicated by meconium in amniotic fluid; O99.344 Other mental disorders complicating childbirth; O69.81X0 Labor and delivery complicated by cord around neck, without compression, not applicable or unspecified; L29.9 Pruritus, unspecified; O62.0 Primary inadequate contractions; F95.2 Tourette's disorder; F41.9 Anxiety disorder, unspecified; F32.9 Major depressive disorder, single episode, unspecified; G40.909 Epilepsy, unspecified, not intractable, without status epilepticus; Z37.0 Single live birth; Z3A.38 38 weeks gestation of pregnancy; Z79.899 Other long term (current) drug therapy; Z87.730 Personal history of (corrected) cleft lip and palate
CPT/HCPCS: 59025; 85025; 86850; 86900; 86901; 88307; 99213

== ENCOUNTER 2021-01-15 17:41 | Emergency (ER) | payer OTHER ==
[2021-01-15 18:41] VITALS: TEMP 97.6
[2021-01-15] MEDS ORDERED: SODIUM CHLORIDE 0.9% 1,000 ML IV STA ×2 (20:52→21:57)
[2021-01-15] MEDS ORDERED: ONDANSETRON 4 MG/2 ML VIAL IVP STA (20:52)
[2021-01-15 21:21] LABS: Basophils # (A) 0.1 k/uL (0-0.2); Basophils % (A) 0 %; Eosinophils # (A) 0.2 k/uL (0-0.7); Eosinophils % (A) 2 %; HCT 45.4 % (34.0-46.0); HGB 15.7 gm/dL (11.4-16.0); Lymphocytes # (A) 2.7 k/uL (1.0-4.8); Lymphocytes % (A) 24 %; MCHC 34.5 g/dL (31.0-37.0); MCV 86.9 fL (80.0-100.0); Mean Platelet Volume 7.7; Monocytes # (A) 0.4 k/uL (0-1.0); Monocytes % (A) 3 %; Neutrophils # (A) 7.7 k/uL (1.3-7.7); Neutrophils % (A) 70 %; Platelet Count 263 k/uL (150-450); RBC 5.23 m/uL (3.80-5.40); RDW 13.3 % (11.5-15.5); WBC 11.1 k/uL (3.8-10.6)
[2021-01-15 21:30] LABS: ALT 22 U/L (4-34); AST 22 U/L (14-36); African American GFR (CKD) >90 (>60 ml/min/1.73 sqM); Albumin 4.6 g/dL (3.5-5.0); Alkaline Phosphatase 73 U/L (38-126); Amylase 87 U/L (30-110); Anion Gap 11 mmol/L; Blood Urea Nitrogen 9 mg/dL (7-17); Calcium 10.3 mg/dL (8.4-10.2); Carbon Dioxide 21 mmol/L (22-30); Chloride 103 mmol/L (98-107); Glucose 84 mg/dL (74-99); Lipase 136 U/L (23-300); Non-African American GFR(CKD) >90 (>60 ml/min/1.73 sqM); Potassium 3.9 mmol/L (3.5-5.1); Sodium 135 mmol/L (137-145); Total Bilirubin 0.6 mg/dL (0.2-1.3); Total Protein 7.7 g/dL (6.3-8.2)
[2021-01-15 21:35] LABS: Appearance,Urine Clear (Clear); Bacteria,Urine Occasional /hpf; Bilirubin,Urine Negative (Negative); Blood,Urine Negative (Negative); Color,Urine Yellow; Glucose,Urine (UA) Negative (Negative); Ketones,Urine 4+ (Negative); Leukocyte Esterase,Urine Small (Negative); Mucus,Urine Few /hpf; Nitrite,Urine Negative (Negative); Protein,Urine 1+ (Negative); RBC,Urine 1 /hpf (0-5); Specific Gravity,Urine 1.042 (1.001-1.035); Squamous Epithelial Cell,Urine 2 /hpf (0-4); WBC,Urine 3 /hpf (0-5)
[2021-01-15 21:38] VITALS: RESP 18
[2021-01-15] MEDS ORDERED: ONDANSETRON 4 MG ODT STARTER PACK 2 TAB BTL PO STA (22:54)
--- NOTE | 2021-01-15 23:00 | ED ---
Nausea/Vomiting/Diarrhea HPI - General Chief complaint: Nausea/Vomiting/Diarrhea Stated complaint: 8wks preg/vomiting Time Seen by Provider: 01/15/21 20:44 Source: patient, RN notes reviewed Mode of arrival: ambulatory Limitations: no limitations - History of Present Illness Initial comments: Patient is a 25-year-old female that presents to the emergency department complaining of nausea vomiting. She also notes that she is approximately 8 weeks and has had similar issues with her previous . She notes this time is a little bit worse. She denied any abdominal cramping spotting or lower abdomen issues. She notes that she feels like she is dehydrated and wants to get evaluated for that. She denied any chest pain shortness of breath diarrhea constipation fever fatigue chills. - Related Data Home Medications Medication Instructions Recorded Confirmed Pnv No.95/Ferrous Fum/Folic AC 1 tab PO ONCE 01/28/20 02/25/20 [ Multivitamin Tablet] Fluticasone Nasal [place] [Flonase 1 spray NASAL BID PRN 02/15/20 02/25/20 Nasal [place]] Allergies Allergy/AdvReac Type Severity Reaction Status Date / Time No Known Allergies Allergy Verified 01/15/21 18:39 Review of Systems ROS Statement: Those systems with pertinent positive or pertinent negative responses have been documented in the HPI. ROS Other: All systems not noted in ROS Statement are negative. Past Medical History Past Medical History: No Reported History Additional Past Medical History / Comment(s): broken arm, broken nose, learning disability, teurets History of Any Multi-Drug Resistant Organisms: None Reported Past Surgical History: Ear Surgery Additional Past Surgical History / Comment(s): cleft palate surgery Past Anesthesia/Blood Transfusion Reactions: No Reported Reaction Additional Past Anesthesia/Blood Transfusion Reaction / Comment(s): Pt states she is difficult to wake up Past Psychological History: Anxiety, Depression Smoking Status: Never smoker Past Alcohol Use History: Occasional Past Drug Use History: None Reported - Past Family History Father Family Medical History: No Reported History Mother History Unknown: Yes General Exam Limitations: no limitations General appearance: alert, in no apparent distress Head exam: Present: atraumatic, normocephalic, normal inspection Eye exam: Present: normal appearance, PERRL, EOMI. Absent: scleral icterus, conjunctival injection, periorbital swelling ENT exam: Present: normal exam, mucous membranes moist Neck exam: Present: normal inspection. Absent: tenderness, meningismus, lymphadenopathy Respiratory exam: Present: normal lung sounds bilaterally. Absent: respiratory distress, wheezes, rales, rhonchi, stridor Cardiovascular Exam: Present: regular rate, normal rhythm, normal heart sounds. Absent: systolic murmur, diastolic murmur, rubs, gallop, clicks Extremities exam: Present: normal inspection, full ROM, normal capillary refill. Absent: tenderness, pedal edema, joint swelling, calf tenderness Neurological exam: Present: alert, oriented X3 Psychiatric exam: Present: normal affect, normal mood Skin exam: Present: warm, dry, intact, normal color. Absent: rash Course Vital Signs 01/15/21 01/15/21 18:39 20:50 Temperature 97.6 F Pulse Rate 102 H 67 Respiratory 20 18 Rate Blood Pressure 101/63 122/83 O2 Sat by Pulse 98 100 Oximetry Medical Decision Making - Medical Decision Making 25-year-old female complaining of nausea vomiting and 8 weeks . Basic labs, 1 L normal saline, 4 g of Zofran ordered. Labs show mild dehydration. Patient is agreeable with discharge home Case discussed with Dr. Lance, patient can discharge home with follow-up primary care and [employer]NAGER. - Lab Data Result diagrams: 01/15/21 21:10 01/15/21 21:10 Lab Results 01/15/21 01/15/21 01/15/21 Range/Units 21:10 21:10 21:10 WBC 11.1 H (3.8-10.6) k/uL RBC 5.23 (3.80-5.40) m/uL Hgb 15.7 (11.4-16.0) gm/dL Hct 45.4 (34.0-46.0) % MCV 86.9 (80.0-100.0) fL MCH 30.0 (25.0-35.0) pg MCHC 34.5 (31.0-37.0) g/dL RDW 13.3 (11.5-15.5) % Plt Count 263 (150-450) k/uL MPV 7.7 Neutrophils % 70 % Lymphocytes % 24 % Monocytes % 3 % Eosinophils % 2 % Basophils % 0 % Neutrophils # 7.7 (1.3-7.7) k/uL Lymphocytes # 2.7 (1.0-4.8) k/uL Monocytes # 0.4 (0-1.0) k/uL Eosinophils # 0.2 (0-0.7) k/uL Basophils # 0.1 (0-0.2) k/uL Sodium 135 L (137-145) mmol/L Potassium 3.9 (3.5-5.1) mmol/L Chloride 103 (98-107) mmol/L Carbon Dioxide 21 L (22-30) mmol/L Anion Gap 11 mmol/L BUN 9 (7-17) mg/dL Creatinine 0.50 L (0.52-1.04) mg/dL Est GFR (CKD-EPI)AfAm >90 (>60 ml/min/1.73 sqM) Est GFR (CKD-EPI)NonAf >90 (>60 ml/min/1.73 sqM) Glucose 84 (74-99) mg/dL Calcium 10.3 H (8.4-10.2) mg/dL Total Bilirubin 0.6 (0.2-1.3) mg/dL AST 22 (14-36) U/L ALT 22 (4-34) U/L Alkaline Phosphatase 73 (38-126) U/L Total Protein 7.7 (6.3-8.2) g/dL Albumin 4.6 (3.5-5.0) g/dL Amylase 87 (30-110) U/L Lipase 136 (23-300) U/L Urine Color Yellow Urine Appearance Clear (Clear) Urine pH 6.0 (5.0-8.0) Ur Specific [place] 1.042 H (1.001-1.035) Urine Protein 1+ H (Negative) Urine Glucose (UA) Negative (Negative) Urine Ketones 4+ H (Negative) Urine Blood Negative (Negative) Urine Nitrite Negative (Negative) Urine Bilirubin Negative (Negative) Urine Urobilinogen 4.0 (<2.0) mg/dL Ur Leukocyte Esterase Small H (Negative) Urine RBC 1 (0-5) /hpf Urine WBC 3 (0-5) /hpf Ur Squamous Epith Cells 2 (0-4) /hpf Urine Bacteria Occasional H (None) /hpf Urine Mucus Few H (None) /hpf Disposition Clinical Impression: Dehydration, Nausea & vomiting Disposition: HOME SELF-CARE Condition: Stable Instructions (If sedation given, give patient instructions): Acute Nausea and Vomiting (ED) Additional Instructions: Please return to the Emergency Department if symptoms worsen or any other concerns. Follow-up primary care 1-2 days. Take Zofran as prescribed. Is patient prescribed a controlled substance at d/c from ED?: No Referrals: Cadence Hong MD [Primary Care Provider] - 1-2 days Time of Disposition: 22:59
[2021-01-15 23:56] VITALS: BP 136/70; PULSE 79
== END 2021-01-15 23:56 | disposition home or self-care (01) ==
LOC: EC 17:41
DX: O21.9 Vomiting of pregnancy, unspecified (principal); O99.281 Endocrine, nutritional and metabolic diseases complicating pregnancy, first trimester; E86.0 Dehydration; Z3A.08 8 weeks gestation of pregnancy
CPT/HCPCS: 36415; 80053; 82150; 83690; 85025; 81001; 99284; 96374; J2405; S0119

== ENCOUNTER 2021-08-19 09:46 | Inpatient (IN) | payer OTHER ==
[2021-08-19] MEDS ORDERED: CITRIC ACID-SODIUM CITRATE 15 ML CUP PO ONE (10:26)
[2021-08-19] MEDS ORDERED: LACTATED RINGERS 1,000 ML IV ONE (10:26)
[2021-08-19 10:44] LABS: Basophils # (A) 0.1 k/uL (0-0.2); Basophils % (A) 1 %; Eosinophils # (A) 0.1 k/uL (0-0.7); Eosinophils % (A) 1 %; HCT 39.1 % (34.0-46.0); HGB 12.9 gm/dL (11.4-16.0); Lymphocytes # (A) 2.1 k/uL (1.0-4.8); Lymphocytes % (A) 17 %; MCH 28.8 pg (25.0-35.0); MCHC 32.9 g/dL (31.0-37.0); MCV 87.6 fL (80.0-100.0); Mean Platelet Volume 9.5; Monocytes # (A) 0.5 k/uL (0-1.0); Monocytes % (A) 4 %; Neutrophils # (A) 9.9 k/uL (1.3-7.7); Neutrophils % (A) 77 %; Platelet Count 258 k/uL (150-450); RBC 4.47 m/uL (3.80-5.40); RDW 14.2 % (11.5-15.5); WBC 12.9 k/uL (3.8-10.6)
[2021-08-19] MEDS: LACTATED RINGERS 1,000 ML IV SCH ×2 (11:23→18:40)
[2021-08-19] MEDS ORDERED: METOCLOPRAMIDE 5 MG/ML 2 ML VIAL IVP PRN (13:05)
[2021-08-19] MEDS ORDERED: SIMETHICONE 80 MG CHEWABLE PO PRN (13:05)
[2021-08-19] MEDS ORDERED: diphenhydrAMINE 50 MG/ML 1 ML VIAL IVP PRN ×2 (13:05)
[2021-08-19] MEDS ORDERED: diphenhydrAMINE 25 MG CAP PO PRN (13:05)
[2021-08-19] MEDS ORDERED: NALOXONE 0.4 MG/ML 1 ML VIAL IV PRN (13:05)
[2021-08-19] MEDS ORDERED: diphenhydrAMINE 50 MG CAP PO PRN (13:05)
[2021-08-19] MEDS ORDERED: ZOLPIDEM 5 MG TAB PO PRN (13:05)
[2021-08-19] MEDS ORDERED: ONDANSETRON 4 MG/2 ML VIAL IVP PRN (13:05)
--- NOTE | 2021-08-19 13:05 | P.OP ---
Date of Procedure: 08/19/21 Preoperative Diagnosis: IUP at 39 and 2/sevenths weeks, history of 1, desires repeat, family status complete. Postoperative Diagnosis: Same Procedure(s) Performed: Repeat section with tubal ligation Anesthesia: spinal Surgeon: Marianne Ha Special Technical Operations Officer #1: Chelsea Kay Estimated Blood Loss (ml): 492 IV fluids (ml): 600 Urine output (ml): 60 Pathology: none sent Condition: stable Disposition: observation Indications for Procedure: Patient desires repeat section with tubal ligation as family status is complete. Operative Findings: Normal uterus tubes and ovaries are appreciated, viable female delivered at 1231, weight of 7 lbs. 12 oz., Apgars of 8 and 9 at one and 5 minutes respectively. Description of Procedure: Patient is taken back to the operating suite where spinal anesthesia was found be adequate by the anesthesia department. She is prepped and draped in normal sterile fashion in the dorsal supine position. A Pfannenstiel skin incision was made the scalpel and carried through the underlying layer of fascia. Fascia was then incised in the midline and extended laterally. The superior aspect the f ascial incision was then grasped elevated and underlying rectus muscles dissected off sharply. The inferior incision was then grasped anupama clamps, elevated and underlying rectus muscles dissected off sharply once again. The peritoneum was identified and entered. This incision was then extended superiorly and inferiorly with good visualization the bladder. Bladder blade was then inserted into the pelvis. The vesicouterine peritoneum was identified and the bladder flap was then created using sharp and blunt dissection. A scalpel was used to make a hysterotomy incision clear fluid was obtained this incision was then extended laterally. The was encountered in a vertex presentation and delivered in the usual fashion. The umbilical cord was doubly clamped and cut. The was handed off to awaiting RN, spontaneous cry was noted at . The placenta was then delivered manually and the uterus was cleared of all clots and debris. Uterine incision was then closed with 0 Vicryl in a running locked fashion. Hemostasis was appreciated. The gutters were then cleared of all clots and debris. The left fallopian tube was then visualized and crushed with a Filshie clip applicator this was then repeated on the opposite side. The uterus was then returned to the abdomen. The posterior lithotomy incision was inspected and found to be hemostatic. The perineum was then loosely reapproximated. The rectus muscles were inspected and any points of bleeding were made hemostatic with the bladder. The fascia was then closed 0 Vicryl in a running fashion from one lateral edge the midline and the other lateral edge the midline. The subcutaneous tissues irrigated and any points of bleeding were made hemostatic with the Bovie. The subcu tissue was then closed with 3-0 Vicryl in a running fashion. The skin was then closed with 4-0 Vicryl in a subcuticular fashion. Steri-Strips were applied. Sterile dressing was applied after the surgery strips. All counts were noted correct 2 at the end the procedure. Patient and infant tolerated delivery well and are resting comfortable he.
--- NOTE | 2021-08-19 13:07 | P.HPOB ---
History of Present Illness H&P Date: 08/19/21 Chief Complaint: IUP at 39 and 2/sevenths weeks, history of 1, de sires repeat This is a 25-year-old at 39 and 2/sevenths weeks that presents to labor and delivery for scheduled repeat section. Patient in addition desires permanent sterilization with tubal ligation. Patient has been receiving routine care which has been essentially uncomplicated. Patient does have a known history of anxiety, ADHD, Tourette's syndrome. Patient did struggle with depression after the delivery of her last child. Today patient notes good movement, occasional contractions are appreciated. Patient denies vaginal bleeding or loss of fluid. Patient is known blood type of O+, rubella status immune, RPR is nonreactive, hepatitis B surface antigen is negative, group beta strep culture is positive. Review of Systems Constitutional: Denies chills, Denies fatigue, Denies fever Ears, nose, mouth and throat: Denies headache Cardiovascular: Reports leg edema Respiratory: Denies dyspnea Gastrointestinal: Denies constipation, Denies diarrhea, Denies nausea, Denies vomiting Genitourinary: Reports Past Medical History Past Medical History: No Reported History Additional Past Medical History / Comment(s): broken arm, broken nose, ADHD, tourettes, History of Any Multi-Drug Resistant Organisms: None Reported Past Surgical History: Ear Surgery Additional Past Surgical History / Comment(s): cleft palate surgery Past Anesthesia/Blood Transfusion Reactions: No Reported Reaction Additional Past Anesthesia/Blood Transfusion Reaction / Comment(s): Pt states she is difficult to wake up Past Psychological History: Anxiety, Depression Smoking Status: Never smoker Past Alcohol Use History: Occasional Past Drug Use History: None Reported - Past Family History Father Family Medical History: No Reported History Mother History Unknown: Yes Medications and Allergies Home Medications Medication Instructions Recorded Confirmed Type Pnv No.95/Ferrous Fum/Folic AC 1 tab PO ONCE 01/28/20 08/19/21 History [ Multivitamin Tablet] Fluticasone Nasal [place] [Flonase 1 spray NASAL BID PRN 02/15/20 08/19/21 History Nasal [place]] Allergies Allergy/AdvReac Type Severity Reaction Status Date / Time No Known Allergies Allergy Verified 08/19/21 10:22 Exam Osteopathic Statement: *. No significant issues noted on an osteopathic structural exam other than those noted in the History and Physical/Consult. Vital Signs Temp Pulse Resp BP Pulse Ox 08/19/21 10:20 96.8 F L 98 17 125/83 97 Intake and Output 08/18/21 08/19/21 08/19/21 22:59 06:59 14:59 Intake Total 1000 Balance 1000 Intake: IV 1000 Other: Weight 69.4 kg Targeted physical exam is performed on this date and cotton opener a well-nourished well-developed female in no acute distress, breathing is noted to be nonlabored, heart has a regular rate and rhythm, abdomen is gravid and stephania ropriate for gestational age, cervical exam is deferred, heart tones are noted to be category 1, she is braxton irregularly. Results Result Diagrams: 08/19/21 10:15 Abnormal Lab Results - Last 24 Hours (Table) 08/19/21 Range/Units 10:15 WBC 12.9 H (3.8-10.6) k/uL Neutrophils # 9.9 H (1.3-7.7) k/uL Assessment and Plan (1) Term Current Visit: Yes Status: Acute Code(s): Z34.90 - ENCNTR FOR SUPRVSN OF NORMAL , UNSP, UNSP TRIMESTER SNOMED Code(s): 73431776 (2) H/O section Current Visit: Yes Status: Acute Code(s): Z98.891 - HISTORY OF UTERINE SCAR FROM PREVIOUS SURGERY SNOMED Code(s): 317316523 Plan: 25-year-old at 39-2/7 weeks that presents to labor and delivery for schedu led repeat section with tubal ligation. Patient is counseled on repeat section and questions are answered. Risks are reviewed including but not limited to infection, bleeding, damage to bladder, bowel, injury. Patient states understanding. Risks of tubal are reviewed, discussed failure rates in addition. Patient states understanding and wishes to proceed. Patient stated back to the operating suite for scheduled repeat section with tubal ligation.
[2021-08-19] MEDS ORDERED: OXYTOCIN 30 UNITS/500 ML NS 30 UNIT in SALINE 1 500ML.BAG IV SCH (13:15)
[2021-08-19] MEDS: ACETAMINOPHEN IV (For NPO) 1,000 MG in EMPTY BAG 1 BAG IVPB SCH ×2 (15:27→21:13)
[2021-08-19] MEDS: PRENATAL VIT-IRON-FOLIC ACID 1 EACH TABLET PO SCH (15:51)
[2021-08-19] MEDS: ACETAMINOPHEN TAB 500 MG TAB PO SCH (16:34)
[2021-08-19] MEDS: SENNOSIDES-DOCUSATE SODIUM 1 EACH TAB PO SCH (23:35)
[2021-08-20] MEDS: IBUPROFEN 600 MG TAB PO SCH ×5 (03:36→20:38)
--- NOTE | 2021-08-20 06:34 | P.PN ---
Progress Note - Text Progress Note Date: 08/20/21 Postoperative day 1 status post section under spinal anesthesia, and i ntrathecal morphine given for postoperative analgesia, patient doing well, there is no anesthesia related complications, Patient had no headache, vital signs stable , Assessment and plan= postop day 1 status post , doing well there is no anesthesia related complication.
--- NOTE | 2021-08-20 07:04 | P.PNOBGPC ---
Subjective - Subjective Principal diagnosis: Postop day 1, repeat section with tubal ligation Interval history: Patient is doing well postoperatively. She is ambulating and voiding without difficulty. She is tolerating clear liquids without nausea or vomiting. She states her pain is well-controlled. She is bottle feeding. She states her lochia is minimal. Patient reports: Reports appetite normal, Reports pain well controlled, Reports ambulating normally : doing well, bottle feeding Objective - Vital Signs Latest vital signs: Vital Signs Temp Pulse Resp BP Pulse Ox 08/20/21 04:00 98.6 F 16 102/70 08/19/21 20:00 98.4 F 73 16 110/69 08/19/21 15:07 97.6 F 95 16 118/62 100 08/19/21 14:37 107 H 16 121/66 08/19/21 14:07 97.8 F 93 16 121/66 100 08/19/21 13:52 90 16 126/74 100 08/19/21 13:37 110 H 16 115/69 99 08/19/21 13:22 97.3 F L 105 H 16 136/70 99 08/19/21 13:00 97.3 F L 97 16 134/70 99 08/19/21 10:20 96.8 F L 98 17 125/83 97 Intake and Output 08/19/21 08/20/21 08/20/21 22:59 06:59 14:59 Intake Total 480 Output Total 524 Balance -44 Intake: Oral 480 Output: Urine 250 Output, Quantitative 274 Blood Loss - Exam Extremities: Present: normal Abdomen: Present: normal appearance, soft Incision: Present: normal, dry, intact Uterus: Present: firm - Labs Labs: Abnormal Lab Results - Last 24 Hours (Table) 08/19/21 Range/Units 10:15 WBC 12.9 H (3.8-10.6) k/uL Neutrophils # 9.9 H (1.3-7.7) k/uL Assessment and Plan (1) Term Current Visit: Yes Status: Acute Code(s): Z34.90 - ENCNTR FOR SUPRVSN OF NORMAL , UNSP, UNSP TRIMESTER SNOMED Code(s): 39950894 (2) H/O section Current Visit: Yes Status: Acute Code(s): Z98.891 - HISTORY OF UTERINE SCAR FROM PREVIOUS SURGERY SNOMED Code(s): 542181616 (3) S/P section Current Visit: Yes Status: Acute Code(s): Z98.891 - HISTORY OF UTERINE SCAR FROM PREVIOUS SURGERY SNOMED Code(s): 186247959 Plan: Patient is doing well postoperatively. Plan to increase ambulation, advance diet to regular. Continue routine postoperative care and anticipate discharge home tomorrow.
[2021-08-20 08:15] LABS: Basophils % (A) 0 %; Eosinophils # (A) 0.1 k/uL (0-0.7); Eosinophils % (A) 1 %; HCT 34.3 % (34.0-46.0); HGB 11.3 gm/dL (11.4-16.0); Hypochromasia Slight; Lymphocytes # (A) 1.4 k/uL (1.0-4.8); Lymphocytes % (A) 14 %; MCH 29.3 pg (25.0-35.0); MCV 88.7 fL (80.0-100.0); Mean Platelet Volume 9.2; Monocytes # (A) 0.5 k/uL (0-1.0); Monocytes % (A) 5 %; Neutrophils # (A) 8.3 k/uL (1.3-7.7); Neutrophils % (A) 79 %; Platelet Count 193 k/uL (150-450); RBC 3.86 m/uL (3.80-5.40); RDW 14.3 % (11.5-15.5); WBC 10.5 k/uL (3.8-10.6)
[2021-08-20] MEDS: ACETAMINOPHEN TAB 500 MG TAB PO SCH ×4 (08:29→19:27)
[2021-08-20] MEDS: PRENATAL VIT-IRON-FOLIC ACID 1 EACH TABLET PO SCH (08:29)
[2021-08-20] MEDS: SENNOSIDES-DOCUSATE SODIUM 1 EACH TAB PO SCH ×2 (08:30→20:38)
[2021-08-20] MEDS: LACTATED RINGERS 1,000 ML IV SCH ×2 (19:27→19:30)
[2021-08-20] MEDS: IBUPROFEN IV 800 MG in SODIUM CHLORIDE 0.9% 250 ML IV SCH ×2 (19:29→19:30)
[2021-08-21] MEDS: ACETAMINOPHEN TAB 500 MG TAB PO SCH ×2 (04:27→08:49)
[2021-08-21] MEDS: IBUPROFEN 600 MG TAB PO SCH ×3 (04:27→12:05)
--- NOTE | 2021-08-21 08:38 | P.DS ---
Providers Date of admission: 08/19/21 09:46 Expected date of discharge: 08/21/21 Attending physician: Marianne Ha Primary care physician: Stated None - Discharge Diagnosis(es) (1) Term Current Visit: Yes Status: Acute (2) H/O section Current Visit: Yes Status: Acute (3) S/P section Current Visit: Yes Status: Acute Hospital Course: 25-year-old 3 now para 2011 that presented to labor and delivery for scheduled repeat section. Patient had been receiving routine care which has been essentially uncomplicated. Patient noted good movement denies contractions or vaginal bleeding, loss of fluid on admission. Patient was taken back to the operating suite where was performed without difficulty. Patient delivered a viable female at 1231, weight of 7 lbs. 12 oz. For full details on the please see the operative report. Patient's postoperative course is been essentially uneventful. On this postoperative day #2 she is ambulating and voiding without difficulty. She is tolerating a regular diet without nausea or vomiting. She states her pain is well-controlled with oral Tylenol and ibuprofen. She is currently bottle fee ding. Plan - Discharge Summary New Discharge Prescriptions: No Action Pnv No.95/Ferrous Fum/Folic AC [ Multivitamin Tablet] 1 tab PO ONCE Fluticasone Nasal [place] [Flonase Nasal [place]] 1 spray NASAL BID PRN PRN Reason: Allergy Symptoms Discharge Medication List Pnv No.95/Ferrous Fum/Folic AC [ Multivitamin Tablet] 1 tab PO ONCE 01/28/20 [History] Fluticasone Nasal [place] [Flonase Nasal [place]] 1 spray NASAL BID PRN 02/15/20 [History] Follow up Appointment(s)/Referral(s): Marianne Ha DO [Doctor of Osteopathic Medicine] - 2 Weeks Patient Instructions/Handouts: (DC), (GEN) Activity/Diet/Wound Care/Special Instructions: Patient can expect menstrual-like bleeding/spotting post . Iiuo-bab-xjakhiw ibuprofen as needed for pain. Motrin dose is 600 mg every 6 hours as needed for pain Tylenol be may be added to 4 hours with a total 24-hour limit 4 g. Patient is to follow-up in 2 weeks for routine postoperative visit. Should she have any issues prior to this visit she is urged to call the office. Discharge Disposition: HOME SELF-CARE
[2021-08-21] MEDS: SENNOSIDES-DOCUSATE SODIUM 1 EACH TAB PO SCH (08:48)
[2021-08-21] MEDS: PRENATAL VIT-IRON-FOLIC ACID 1 EACH TABLET PO SCH (08:48)
[2021-08-21 09:22] VITALS: BP 110/71; PULSE 88; RESP 18; TEMP 97.8
== END 2021-08-21 12:10 | disposition home or self-care (01) | DRG 785 ==
LOC: 4FBP 09:46
PROVIDERS: ADMIT Obstetrics & Gynecology Obstetrics; ATTEND Obstetrics & Gynecology Obstetrics
PROC: 0UL70CZ Occlusion of Bilateral Fallopian Tubes with Extraluminal Device, Open Approach (ICD-10-PCS; 2021-08-19)
PROC: 10D00Z1 Extraction of Products of Conception, Low, Open Approach (ICD-10-PCS; principal; 2021-08-19 12:00)
DX: O34.211 Maternal care for low transverse scar from previous cesarean delivery (principal); F41.9 Anxiety disorder, unspecified; F90.9 Attention-deficit hyperactivity disorder, unspecified type; F95.2 Tourette's disorder; O99.344 Other mental disorders complicating childbirth; Z30.2 Encounter for sterilization; Z37.0 Single live birth; Z3A.39 39 weeks gestation of pregnancy; Z87.730 Personal history of (corrected) cleft lip and palate
CPT/HCPCS: 85025; 86850; 86900; 86901

== ENCOUNTER → 2021-10-31 | Outpatient (CLI) | payer OTHER ==
--- NOTE | 2021-10-31 14:51 | US ---
EXAMINATION TYPE: US abdomen complete DATE OF EXAM: 10/31/2021 COMPARISON: NONE CLINICAL HISTORY: ABDOMINAL PAIN R10.9. Pain TECHNIQUE: Multiple sonographic images of the abdomen are obtained. FINDINGS: EXAM MEASUREMENTS: Liver Length: 13.4 cm Gallbladder Wall: .2 cm CBD: .2 cm Spleen: 10.9 cm Right Kidney: 10.9 x 3.0 x 3.5 cm Left Kidney: 10.3 x 4.2 x 4.3 cm BRAND EXECUTIVE NOTES: Pancreas: wnl Liver: wnl Gallbladder: Multiple stones seen Evidence for sonographic Maya's sign: no CBD: wnl Spleen: wnl Right Kidney: wnl Left Kidney: wnl Upper IVC: wnl Abd Aorta: wnl IMPRESSION: 1. Cholelithiasis.
== END | disposition home or self-care (01) ==
LOC: RADUSWWP 07:35
PROVIDERS: ATTEND Internal Medicine
DX: K80.20 Calculus of gallbladder without cholecystitis without obstruction (principal)
CPT/HCPCS: 76700

== ENCOUNTER 2023-01-28 18:03 | Emergency (ER) | payer OTHER ==
--- NOTE | 2023-01-28 18:09 | ED ---
General Adult HPI <Miguel Vincent - Last Filed: 01/28/23 18:09> - General Source: patient, RN notes reviewed Mode of arrival: ambulatory Limitations: no limitations <Brenda Galicia - Last Filed: 01/29/23 04:11> - General Chief complaint: Wound/Laceration Stated complaint: RIGHT THUMB PAIN Time Seen by Provider: 01/28/23 18:08 - History of Present Illness Initial comments: 27-year-old female presenting to the ED with a chief complaint of right thumb injury. Patient states that she was trying to great cheese when she accidentally grated her thumb instead prompting presentation to the ED for further evaluation. Patient unsure when her last tetanus shot was. (Miguel Vincent) This is a 27-year-old female who presents to the emergency department for an injury to the right thumb. She was grating cheese earlier today, and she caught her thumb in the grater, causing the injury. States that this is becoming increasingly painful and she is having difficulty moving her thumb. Unsure when her last tetanus vaccine was. (Brenda Galicia) - Related Data Home Medications Medication Instructions Recorded Confirmed Pnv No.95/Ferrous Fum/Folic AC 1 tab PO ONCE 01/28/20 08/19/21 [ Multivitamin Tablet] Fluticasone Nasal [place] [Flonase 1 spray NASAL BID PRN 02/15/20 08/19/21 Nasal [place]] Previous Rx's Medication Instructions Recorded Acetaminophen Tab [Tylenol Tab] 500 mg PO Q6H PRN #24 tablet 10/22/21 Magnesium Oxide [Mag-Ox] 400 mg PO DAILY #10 tablet 10/22/21 Naproxen [Naprosyn] 375 mg PO Q12HR PRN #20 tablet 10/22/21 Potassium Chloride ER [K-Dur 20] 20 meq PO DAILY #10 tab 10/22/21 Allergies Allergy/AdvReac Type Severity Reaction Status Date / Time No Known Allergies Allergy Verified 01/28/23 18:58 Review of Systems ROS Other: All systems not noted in ROS Statement are negative. <Miguel Vincent - Last Filed: 01/28/23 18:09> ROS Other: All systems not noted in ROS Statement are negative. <Brenda Galicia - Last Filed: 01/29/23 04:11> ROS Statement: Those systems with pertinent positive or pertinent negative responses have been documented in the HPI. Past Medical History Past Medical History: No Reported History Additional Past Medical History / Comment(s): broken arm, broken nose, ADHD, tourettes, History of Any Multi-Drug Resistant Organisms: None Reported Past Surgical History: Ear Surgery Additional Past Surgical History / Comment(s): cleft palate surgery Past Anesthesia/Blood Transfusion Reactions: No Reported Reaction Additional Past Anesthesia/Blood Transfusion Reaction / Comment(s): Pt states she is difficult to wake up Past Psychological History: Anxiety, Depression Smoking Status: Never smoker Past Alcohol Use History: Occasional Past Drug Use History: None Reported - Past Family History Father Family Medical History: No Reported History Mother History Unknown: Yes <Miguel Vincent - Last Filed: 01/28/23 18:09> General Exam Limitations: no limitations General appearance: alert, in no apparent distress Head exam: Present: atraumatic, normocephalic, normal inspection Respiratory exam: Present: normal lung sounds bilaterally. Absent: respiratory distress, wheezes, rales, rhonchi, stridor Cardiovascular Exam: Present: regular rate, normal rhythm, normal heart sounds. Absent: systolic murmur, diastolic murmur, rubs, gallop, clicks Neurological exam: Present: alert, oriented X3, CN II-XII intact Psychiatric exam: Present: normal affect, normal mood Skin exam: Present: other (Abrasion to the dorsal aspect of the right thumb. Minor active bleeding. Skin flap in the center of the abrasion.) <Brenda Galicia - Last Filed: 01/29/23 04:11> Course Vital Signs 01/28/23 01/28/23 18:56 22:36 Temperature 98 F 98.2 F Pulse Rate 63 72 Respiratory 16 16 Rate Blood Pressure 124/81 122/79 O2 Sat by Pulse 96 98 Oximetry Procedures - Laceration Laceration #1 Consent Obtained: verbal consent Indication: laceration Site: other (Right thumb) Size (cm): 1 Description: linear Depth: simple, single layer Type of Sutures: other (Exofin) <Brenda Galicia - Last Filed: 01/29/23 04:11> Medical Decision Making <Miguel Vincent - Last Filed: 01/28/23 18:09> - Radiology Data Radiology results: report reviewed, image reviewed <Brenda Galicia - Last Filed: 01/29/23 04:11> - Medical Decision Making Quicknote portion performed. Signed Miguel Vincent PA-C (Miguel Vincent) This is a 27-year-old female who presents to the emergency department for a right thumb injury. Was pt. sent in by a medical professional or institution? @ -No Did you speak to anyone other than the patient for history? @ -No Did you review nursing and triage notes? @ -Yes, and I agree, it is accurate with regards to the patient's symptoms. Were old charts reviewed? @ -No Differential Diagnosis? @ -Differential Musculoskeletal: Muscular strain, contusion, ligament sprain, fracture, arthritis, septic arthritis, bursitis, cellulitis, muscle spasm, nerve compression, DVT, arterial occlusion, herpes zoster, electrolyte abnormality, tumor.... This is not meant to be in all inclusive list EKG interpreted by me (3pts min.)? @ -Not obtained X-rays interpreted by me (1pt min.)? @ -X-ray of the right thumb obtained. My interpretation identifies no acute fractures. CT interpreted by me (1pt min.)? @ -Not obtained U/S interpreted by me (1pt. min.)? @ -Not obtained What testing was considered but not performed? (CT, X-rays, U/S, labs)? Why? @ -None What meds were considered but not given? Why? @ -None Did you discuss the management of the patient with other professionals? @ -No Did you reconcile home meds? @ -No Was smoking cessation discussed for >3mins.? @ -No Was critical care preformed (if so, how long)? @ -No Were there social determinants of health that impacted care today? How? (Homelessness, low income, unemployed, alcoholism, drug addiction, transportation, low edu. Level, literacy, decrease access to med. care, intermediate, rehab)? @ -No Was there de-escalation of care discussed even if they declined? (Discuss DNR or withdrawal of care, Hospice)? @ -No What co-morbidities impacted this encounter? (DM, HTN, Smoking, COPD, CAD, Cancer, CVA, Hep., AIDS, mental health diagnosis, sleep apnea, morbid obesity)? @ -None Was patient admitted / discharged? @ -Discharged. X-ray of the right thumb obtained revealing no acute process. She had a small flap of skin that was repaired with exofin. Tetanus vaccine was updated. Patient discharged home in stable condition. Advised ibuprofen and Tylenol as needed for pain relief. Undiagnosed new problem with uncertain prognosis? @ -None Drug Therapy requiring intensive monitoring for toxicity (Heparin, Nitro, Insulin, Cardizem)? @ -None Were any procedures done? @ -Laceration repair with exofin Diagnosis/symptom? @ -Right thumb injury Acute, or Chronic, or Acute on Chronic? @ -Acute Uncomplicated (without systemic symptoms) or Complicated (systemic symptoms)? @ -Uncomplicated Side effects of treatment? @ -None Exacerbation, Progression, or Severe Exacerbation] @ -Not applicable Poses a threat to life or bodily function? @ -No Return precautions reviewed in depth, the patient is instructed to return to the emergency department with any new, worsening, or concerning symptoms. Patient verbalized understanding. This case was discussed in detail with the attending ED physician, Dr. Ryan. Presentation, findings, and treatment plan discussed in detail as well. (Brenda Galicia) Disposition <Miguel Vincent - Last Filed: 01/28/23 18:09> Is patient prescribed a controlled substance at d/c from ED?: No <Brenda Galicia - Last Filed: 01/29/23 04:11> Clinical Impression: Abrasion of right thumb Disposition: HOME SELF-CARE Instructions (If sedation given, give patient instructions): Skin Adhesive Care (ED) Additional Instructions: Return to the emergency department with any new, worsening, or concerning symptoms. Alternate with ibuprofen and Tylenol as needed for pain relief. Keep the area dry, do not apply topical medications, and do not rub, scratch, or pick at the wound. The adhesive will naturally fall off within 5-10 days. Referrals: Cadence Hong MD [Primary Care Provider] - 1-2 days
[2023-01-28 19:13] VITALS: RESP 16
--- NOTE | 2023-01-28 19:31 | XR ---
PROCEDURE: XR finger RT - 3V DATE AND TIME: 01/28/2023 7:03 PM CLINICAL INDICATION: PH[facility]; thumb injury TECHNIQUE: Department protocol COMPARISON: None FINDINGS: There is no fracture or malalignment. The soft tissues are unremarkable. IMPRESSION: No acute radiographic process.
[2023-01-28] MEDS ORDERED: DIPH,PERTUS(ACELL)TETVAC-LF 0.5 ML VIAL IM ONE (21:40)
[2023-01-28] MEDS ORDERED: TOPICAL SKIN ADHESIVE 1 EACH AMP TOPICAL ONE (21:40)
[2023-01-28] MEDS ORDERED: LIDOCAINE/EPINEPHR/TETRACAINE 5 ML BOTTLE TOPICAL ONE (21:40)
[2023-01-28 22:43] VITALS: BP 122/79; PULSE 72; TEMP 98.2
== END 2023-01-28 22:37 | disposition home or self-care (01) ==
LOC: EC 18:03
DX: S61.011A Laceration without foreign body of right thumb without damage to nail, initial encounter (principal); Z86.59 Personal history of other mental and behavioral disorders; Z23 Encounter for immunization; W26.8XXA Contact with other sharp object(s), not elsewhere classified, initial encounter
CPT/HCPCS: 12001; 90471; 90715; 99283

== ENCOUNTER → 2023-09-09 | Outpatient (CLI) | payer OTHER ==
--- NOTE | 2023-09-09 21:56 | US ---
EXAMINATION TYPE: US axilla BILAT DATE OF EXAM: 09/09/2023 COMPARISON: NONE CLINICAL INDICATION: Female, 27 years old with history of I88.1 CHRONIC LYMPHADENITIS, EXCEPT MESENTE CASANDRA; Strong family of bone cancer (paternal great grandma and grandma); Axillary lumps x 1 year that never go away but will get smaller. When enlarged they are painful and red. TECHNIQUE: Real-time linear array sonography is performed over the bilateral axilla. FINDINGS: Right - multiple hypoechoic heterogenous areas with vascularity, largest = 1.0 x 0.6 x 1.1 cm Left - Right - multiple hypoechoic heterogenous areas with vascularity, largest = 1.1 x 0.5 x 0.7 cm IMPRESSION: 1. Small appearing subcutaneous hypoechoic areas. Subcutaneous abscesses could be considered. Lymphad enopathy is within the differential.
== END | disposition home or self-care (01) ==
LOC: RADUSWWP 14:48
PROVIDERS: ATTEND Internal Medicine
DX: I88.1 Chronic lymphadenitis, except mesenteric (principal); L02.91 Cutaneous abscess, unspecified
CPT/HCPCS: 76882

== ENCOUNTER → 2024-09-15 | Outpatient (CLI) | payer OTHER ==
--- NOTE | 2024-09-15 07:57 | USB ---
Reason for Exam: Clinical finding. Technique: Method: Whole Breast Handheld. Findings: The whole breast of the left breast, the axilla of the left breast and the retroareolar of the left breast were scanned. A complete US of all four quadrants of the breast and retro-areolar region were reviewed. No solid or cystic masses are identified.. Overall Assessment: Benign, BI-RAD 2 Management: Screening Mammogram of both breasts at age 41. A clinical breast exam by your physician is recommended on an annual basis and results should be correlated with mammographic findings. This exam should not preclude additional follow-up of suspicious palpable abnormalities. Results were given to the patient verbally at the time of exam. [facility], , 09/15/2024 7:54 AM. Electronically signed and approved by: Choco Bentley M.D. Radiologis
== END | disposition home or self-care (01) ==
LOC: RADUSWWP 07:34
PROVIDERS: ATTEND Internal Medicine
DX: N64.4 Mastodynia (principal)